=== PATIENT | female | born 1940 | race African-American/Black ===

== ENCOUNTER 2018-03-17 07:22 | Emergency (ER) | payer OTHER ==
[~2018-03-17] VITALS: Ht 170.2 cm; Wt 90.7 kg
[~2018-03-17 07:22] MED LIST: ADULT LOW DOSE81 MG PO; ARANESP10 MCG/0.4 IV; DIALYVITE TABL1 EACH PO; EPOGEN4000 UNIT/ SQ; HUMALOG100 UNIT/1 SQ; HYDROCODONE-APA1 TA1 PO; IBUPROFEN 800800 MG PO; LANTUS SC; LEVOTHYROXIN0.075 MG PO; LOVASTAT20 PO; MIDODRINE HCL10 MG PO; MIRALAX17 GM PO; NEPHRO-VITE TA0.8 MG PO; NORCO 5-325 TA1 EACH PO; PHOSLO667 MG PO; PREDNISONE 5 MG5 M1 PO; PRO-STAT RENAL30 ML PO; ROCALTROL0.5 MCG PO; SENSIPAR60 MG PO; SENSIPAR90 MG PO; TYLENOL325 MG PO
[2018-03-17] MEDS ORDERED: MUCINEX600 MG PO (07:39)
[2018-03-17] MEDS ORDERED: NORCO 5-325 TA1 EACH PO (08:17)
[2018-03-18] MEDS ORDERED: DURAGESIC1 EAC1 TRANSDERM (23:36)
[2018-03-19] MEDS ORDERED: TYLENOL EXTRA500 MG PO (02:09)
[2018-03-19] MEDS ORDERED: MUCINEX DM ER1 EAC1 PO (02:16)
[2018-03-19] MEDS ORDERED: SYNTHROID75 MCG PO (02:18)
[2018-03-19] MEDS ORDERED: HYDROCODONE-AP1 EAC6 PO (02:22)
[2018-03-19] MEDS ORDERED: ARANESP25 MCG/0.4 IV (02:26)
[2018-03-19] MEDS ORDERED: FERRLECIT62.5 MG/2 IV (02:27)
[2018-03-19] MEDS ORDERED: PROTONIX40 M1 PO (02:30)
== END 2018-03-17 09:05 | disposition home or self-care (01) ==
LOC: ER 07:22
DX: M16.11 Unilateral primary osteoarthritis, right hip (principal); N19 Unspecified kidney failure; Z99.2 Dependence on renal dialysis; E11.9 Type 2 diabetes mellitus without complications; Z95.811 Presence of heart assist device; Z88.8 Allergy status to other drugs, medicaments and biological substances

== ENCOUNTER 2018-04-15 09:15 | Emergency (ER) | payer OTHER ==
[~2018-04-15] VITALS: Ht 175.3 cm; Wt 90.7 kg
[~2018-04-15 09:15] MED LIST changes: +ARANESP25 MCG/0.4 IV; +DURAGESIC1 EAC1 TRANSDERM; +FERRLECIT62.5 MG/2 IV; +HYDROCODONE-AP1 EAC6 PO; +MUCINEX DM ER1 EAC1 PO; +MUCINEX600 MG PO; +PROTONIX40 M1 PO; +SYNTHROID75 MCG PO; +TYLENOL EXTRA500 MG PO
== END 2018-04-15 11:52 | disposition home or self-care (01) ==
LOC: ER 09:15
DX: M25.551 Pain in right hip (principal); M25.512 Pain in left shoulder; M25.561 Pain in right knee; E11.22 Type 2 diabetes mellitus with diabetic chronic kidney disease; N18.6 End stage renal disease; E78.5 Hyperlipidemia, unspecified; I25.10 Atherosclerotic heart disease of native coronary artery without angina pectoris; I25.2 Old myocardial infarction; M54.9 Dorsalgia, unspecified; G89.29 Other chronic pain; Z94.0 Kidney transplant status; Z88.8 Allergy status to other drugs, medicaments and biological substances; W18.39XA Other fall on same level, initial encounter; Y92.89 Other specified places as the place of occurrence of the external cause; Y93.89 Activity, other specified; Y99.8 Other external cause status

== ENCOUNTER 2018-04-24 16:01 | Inpatient (IN) | payer OTHER ==
[~2018-04-24] VITALS: Ht 175.3 cm; Wt 89.5 kg
--- NOTE | ~2018-04-24 | 2DMMODE ---
[facility] [address] [facility] [place] [address] 2 D/M-MODE ECHOCARDIOGRAM Name: NELA MILLAN Jovita Room #: 225-P [facility] IN .R.#: [id number] Admission: 04/24/18 Attend Phys: Curt Rinaldi, Discharge: Date of : 42 Date of Service: 04/25/18 1237 Report #: [id number] THIS REPORT FOR: //name// APPROVED REPORT Study performed: 04/25/2018 11:14:36 EXAM: Comprehensive 2D, Doppler, and color-flow Echocardiogram Patient Location: Bedside Room #: [facility] Status: routine BSA: 2.05 HR: 80 bpm BP: 123/56 mmHg Other Information Study Quality: Good Indications Diabetes CAD Hypertension/HDD 2D Dimensions RVDd: 31.58 mm LVEF(%): 58.32 (>50%) IVSd: 13.29 (7-11mm) LVOT Diam: 21.03 (18-24mm) LVDd: 43.77 mm PWd: 13.04 (7-11mm) Ascending Ao: 24.75 (22-36mm) LVDs: 30.38 (25-40mm) Aortic Root: 29.32 mm IVC: 10.00 mm Pulido's LVEF: 58.32 % Volumes Left Atrial Volume (Systole) Single Plane 4CH: 60.20 mL Single Plane 2CH: 46.90 mL LA ESV Index: 30.00 mL/m2 Aortic Valve AoV Peak Oliverio.: 1.29 m/s AO Peak Gr.: 6.68 mmHg LVOT Max P.04 mmHg LVOT Max V: 1.12 m/s LOUISE Vmax: 3.02 cm2 Mitral Valve E/A Ratio: 1.1 [facility] [place] [address] 2 D/M-MODE ECHOCARDIOGRAM Name: SHANNON MILLANDafne Hussein Room #: [address] [place] [address]..#: [id number] Admission: 04/24/18 Attend Phys: Curt Rinaldi, Discharge: Date of : 42 Date of Service: 04/25/18 1237 Report #: [id number] MV Decel. Time: 190.72 ms MV E Max Oliverio.: 0.78 m/s MV A Oliverio.: 0.71 m/s MV PHT: 55.31 ms IVRT: 96.89 ms Pulmonary Valve PV Peak Oliverio.: 1.07 m/s PV Peak Gr.: 4.59 mmHg Pulmonary Vein P Vein S: 0.50 m/s P Vein A: 0.26 m/s P Vein D: 0.22 m/s P Vein A Dur.: 124.6 msec P Vein S/D Ratio: 2.27 Left Ventricle The left ventricle is normal size. There is normal LV segmental wall motion. Mild concentric left ventricular hypertrophy. The left ventricular systolic function is normal. The left ventricular ejection fraction is within the normal range. LVEF is 55-60%. The diastolic function is abnormal. Right Ventricle The right ventricle is normal size. The right ventricular systolic function is normal. Atria The left atrium size is normal. The right atrium size is normal. Aortic Valve The aortic valve is normal in structure, trileaflet. No aortic regurgitation is present. There is no aortic valvular stenosis. Mitral Valve The mitral valve is normal in structure. There is no mitral valve regurgitation noted. No evidence of mitral valve stenosis. Tricuspid Valve The tricuspid valve is normal in structure. There is no tricuspid valve regurgitation noted. Pulmonic Valve The pulmonary valve is normal in structure. There is no pulmonic valvular regurgitation. [address] [address] 2 D/M-MODE ECHOCARDIOGRAM Name: NELA MILLAN Room #: 225-P [facility]#: [id number] Admission: 04/24/18 Attend Phys: Curt Rinaldi, Discharge: Date of : 42 Date of Service: 04/25/18 1237 Report #: [id number] Great Vessels The aortic root is normal in size. IVC is normal in size and collapses >50% with inspiration. Pericardium There is no pericardial effusion. <Conclusion> The left ventricular systolic function is normal. There is normal LV segmental wall motion. The aortic valve is normal in structure, trileaflet. No aortic regurgitation or stenosis The mitral valve is normal in structure. No mitral valve regurgitation. Pulmonary artery pressure could not be reliably ascertained There is no pericardial effusion. <ELECTRONICALLY SIGNED> By: Milad Cr MD, FACC 04/25/18 1237 1237 1237 Milad Cr MD, FACC /INF
--- NOTE | ~2018-04-24 | HC ---
[facility] [place] [address] CONSULTATION Name: NELA MILLAN Room #: 225-P ADM IN M.R.#: [id number] Admission: 04/24/18 Attend Phys: Curt Rinaldi MD Discharge: Date of : 42 Report #: [id number] THIS REPORT FOR: //name// CC: Curt Rinaldi DATE OF SERVICE: 04/25/2018 ATTENDING PHYSICIAN: Curt Rinaldi MD REASON FOR CONSULTATION: End-stage renal disease. HISTORY OF PRESENT ILLNESS: The patient is well known to our service, longstanding diabetes, end-stage renal disease, on dialysis overall, more or less for the last 13 years, she briefly had a renal transplant 10-11 years ago, which did not do well and eventually had explanted. More recently, she has had trouble with pain in her right hip, which has worsened. She has had difficulty getting around with weakness and poor appetite. Evaluation showed very severe arthritis in the right hip, the patient was offered a hip replacement, but refused, was at rehab, had not much in the way of improvement and now is readmitted for further evaluation and treatment. PAST MEDICAL HISTORY: Longstanding diabetes mellitus, end-stage renal disease, peripheral neuropathy, previous pituitary tumor, which required surgery, some degree of pituitary insufficiency, on thyroid and adrenal replacement. She also has a history of coronary artery disease, status post PCI with 2 coronary artery stents. CURRENT MEDICATIONS: Include lovastatin 20 mg daily, aspirin 81 mg daily, PhosLo 3 with meals t.i.d., calcitriol 1.5 mcg twice a week, Nephro-Remy 1 daily, Synthroid 75 mcg daily, hydrocodone p.r.n., Aranesp 50 mcg weekly, pantoprazole 40 mg daily, Sensipar 60 mg daily, prednisone 7.5 mg daily. PAST SURGICAL HISTORY: Includes previous , right arm AV fistula, previous kidney transplant and removal, and hypophysectomy as mentioned above. FAMILY HISTORY: Negative for renal disease. SOCIAL HISTORY: No cigarettes or alcohol. Lives at home with her and a daughter. REVIEW OF SYSTEMS: GENERAL: She has been feeling poorly. EYES: Vision has been okay. ENT: Hearing okay, swallows okay. Denies mouth ulcers. ENDOCRINE: Positive for the pituitary insufficiency and diabetes. [address] [address] CONSULTATION Name: NELA MILLAN Room #: 225-P [facility] IN M.R.#: [id number] Admission: 04/24/18 Attend Phys: Curt Rinaldi MD Discharge: Date of : 42 Report #: [id number] RESPIRATORY: Denies shortness of breath or pleuritic pain. CARDIAC: Denies chest pain, angina, swelling, or palpitations. GASTROINTESTINAL: Appetite has been poor. She has had some diarrhea of late. GENITOURINARY: Not making much urine at all. NEUROLOGIC: Generalized weakness as mentioned. MUSCULOSKELETAL: Lots of pain in the right hip. SKIN: No skin rashes, lesions, or ulcers. PHYSICAL EXAMINATION: GENERAL: This is a somewhat depressed, chronically ill appearing patient. SKIN: Unremarkable. SKELETAL: Lot of pain with movement of the right hip. HEENT: Extraocular movements are full. Vision intact. No scleral icterus. Hearing intact. Mucous membranes are moist. Tongue, buccal mucosa benign. NECK: Supple, no carotid bruits. CHEST: Clear to auscultation. HEART: Regular, occasional premature beats. ABDOMEN: Soft and nontender without bruits, masses or organomegaly. The right upper arm fistula is intact. EXTREMITIES: Show no peripheral edema. Pulses diminished. LABORATORY DATA: Sodium 140, potassium 4.5, chloride 101, bicarbonate 25, creatinine 4.9. ASSESSMENT: 1. End-stage renal disease. Continue on 3 times weekly dialysis. 2. Severe right hip pain. She might reconsider surgery and see if a hip replacement might help the pain and enable her to get back up and around. She certainly needs lots of rehab. 3. Status post pituitary tumor with removal, on adrenal and thyroid replacements. 4. Diabetes mellitus with peripheral neuropathy. 5. History of coronary artery disease, status post stents. We will order an echocardiogram. <ELECTRONICALLY SIGNED> By: Mahin Jain MD 04/26/18 1022 0935 1241 Mahin Jain MD /nt
--- NOTE | ~2018-04-24 | HC ---
[facility] [place] [address] CONSULTATION Name: NELA MILLAN Room #: 225-P [facility] IN M.R.#: [id number] Admission: 04/24/18 Attend Phys: Curt Rinaldi MD Discharge: Date of : 41 Report #: [id number] THIS REPORT FOR: //name// CC: Curt Rinaldi DATE OF SERVICE: 04/28/2018 ORTHOPEDIC CONSULTATION CHIEF COMPLAINT: Right hip pain. HISTORY OF PRESENT ILLNESS: The patient is a very pleasant 77-year-old female seen today for evaluation of her right hip. The patient had been seen at the end of February for right hip pain and osteoarthritis. She has a history of end-stage renal disease and is currently on dialysis. She had Interventional Radiology perform a cortisone injection into her hip, which she reports provided minimal relief. She reports today she is feeling a little better. The pain medicines that she has had while in the hospital have allowed her to feel better. She is here with her daughter today, receiving dialysis currently and is interested in discussing her options further. No further injuries have been noted. She denies any falls, trauma or injuries. She reports ambulating primarily with a walker or using a wheelchair for longer distances. PAST MEDICAL HISTORY: Significant for end-stage renal disease, prior kidney transplant and removal, long-standing diabetes, peripheral neuropathy, pituitary tumor, pituitary insufficiency, on thyroid and adrenal replacement and history of coronary artery disease with 2 coronary artery stents. PAST SURGICAL HISTORY: Also includes previous , right arm AV fistula and hypophysectomy. CURRENT MEDICATIONS: Please see current MAR. The patient is on prednisone 7.5 mg a day. FAMILY HISTORY: Negative for renal disease. SOCIAL HISTORY: The patient lives at home with her and a daughter. Denies alcohol or tobacco use. PHYSICAL EXAMINATION: VITAL SIGNS: Most recent vitals, temperature 98.6, pulse 74, respirations 14, BP 149/71 and pulse ox 98%. Height 5 feet 9 inches, weight 200 pounds. GENERAL: The patient is alert and oriented x 3, cooperative. Answers questions appropriately. Daughter is at bedside. MUSCULOSKELETAL EXAMINATION: Reveals pelvis is stable to AP and lateral compression. She is tender over the right hip and right paraspinal muscles[place] [address] CONSULTATION Name: NELA MILLAN Room #: [address] [place] [address] [place] .R.#: [id number] Admission: 04/24/18 Attend Phys: Curt Rinaldi MD Discharge: Date of : 41 Report #: [id number] compared to the left. She again continues to have difficulty getting out of bed and transferring. She denies pain over the sacroiliac joints or piriformis fossa. The majority of her pain is localized in the right inguinal region. She denies pain in the left inguinal region. Hip motion is unchanged with flexion, limited to approximately 90 degrees and she has increased pain with flexion and internal rotation. She has minimal discomfort over the more distal thigh, knee, leg and ankle. She reports a peripheral neuropathy with some sensation intact distally. Compartments are soft. Mild swelling is noted in the lower extremities. LABORATORY DATA: Reviewed. Prior radiographs revealed a right hip arthrosis. IMPRESSION: 1. Right hip osteoarthritis. 2. Multiple medical comorbidities. PLAN: We again reviewed treatment options with the patient and her daughter for her right hip osteoarthritis. She reports that she is currently scheduled to be discharged later today to [facility]. We have discussed continued nonoperative management and utilization of oral pain medications versus total hip arthroplasty. We have discussed some of the potential risks, benefits, alternatives and potential complications. I have discussed with her that I do not perform total hip arthroplasty, but one of my partners could be seen, either Dr. Bertin Martinez or Dr. Tanmay Wayne. The patient and her daughter feel comfortable with being discharged today and seeing one of my partners on an outpatient basis to discuss potential hip replacement further. She, at this point, is unsure if she would like to commit to this type of procedure. Thank you for this consultation. By: 1107 1220 Edson Yoo MD /john
--- NOTE | ~2018-04-24 | EKG ---
[facility] [place] [address] [place] [address] ELECTROCARDIOGRAM REPORT Name: NELA MILLAN Room #: 419-P [facility] IN ..#: [id number] Admission: 04/24/18 Attend Phys: Curt Rinaldi MD Discharge: Date of : 41 Report #: [id number] THIS REPORT FOR: //name// [facility] ED Test Date: 2018-04-24 Test Time: 16:44:52 Pat Name: NELA MILLAN Department: Room: Gender: F Manager Terminal: jlnaty : 1940 Requested By: Simón Gaines Order Number: [id number] MD: Milad rC Measurements Intervals [place]dermott Rate: 93 P: 69 CT: 163 QRS: -12 QRSD: 79 T: QT: 372 QTc: 463 Interpretive Statements Sinus tachycardia Multiple premature complexes, vent & supraven Borderline low voltage, extremity leads Nonspecific T abnormalities, lateral leads Compared to ECG 12/20/2014 06:43:05 T-wave abnormality now present ventricular and supraventricular ectopy now present Electronically Signed On 04-25-2018 7:35:08 CDT by Milad Cr [email or web address] <ELECTRONICALLY SIGNED> By: Milad Cr MD, [facility] 04/25/18 0735 1644 1644 Milad Cr MD, [facility] /EPI
[2018-04-24 16:06] VITALS: BP 154/70
[2018-04-24 17:52] LABS: ABSOLUTE NEUTROPHILS 6.4 thou/uL (1.4-8.2); BASOPHILS 1.2 % (0.0-2.0); EOSINOPHILS 0.6 % (0.0-3.0); HEMATOCRIT 43.8 % (37.0-47.0); HEMOGLOBIN 13.8 gm/dL (12.0-15.0); LYMPHOCYTES 6.1 % (24.0-44.0); MCH 30.9 pg (26.0-34.0); MCHC 31.4 g/dL (28.0-37.0); MCV 98.3 fL (80.0-100.0); MONOCYTES 7.7 % (1.0-8.0); PLATELET COUNT 141 thou/uL (150-400); POLYS 84.4 % (36.0-66.0); RBC 4.46 mil/uL (4.20-5.00); RDW 22.7 % (10.5-14.5); WBC 7.5 thou/uL (4.0-11.0)
[2018-04-24 17:54] VITALS: BP 154/70
[2018-04-24 18:10] LABS: ANION GAP 14 mmol/L (7-16); CHLORIDE 101 mmol/L (98-107); CO2 25 mmol/L (21-32); POTASSIUM 4.5 mmol/L (3.5-5.1); SODIUM 140 mmol/L (136-145); TROPONIN-I < 0.04 ng/mL (<0.06)
[2018-04-24 18:16] LABS: BUN 8 mg/dL (7-18); CALCIUM 8.5 mg/dL (8.5-10.1); CREATININE 4.9 mg/dL (0.6-1.0); GLUCOSE 72 mg/dL (74-106)
[2018-04-24 18:25] VITALS: BP 161/65
[2018-04-24 20:00] VITALS: BP 161/65
[2018-04-25 04:07] VITALS: BP 136/61
[2018-04-25 07:10] VITALS: BP 123/56
[2018-04-25 21:20] VITALS: BP 140/92
[2018-04-26 08:02] LABS: ALBUMIN 2.4 g/dL (3.4-5.0); CALCIUM 7.8 mg/dL (8.5-10.1); PHOSPHORUS 2.6 mg/dL (2.5-4.9); POTASSIUM 4.6 mmol/L (3.5-5.1)
[2018-04-26 08:07] LABS: CREATININE 7.6 mg/dL (0.6-1.0)
[2018-04-26 20:07] VITALS: BP 106/56
[2018-04-26 20:20] VITALS: BP 133/64
[2018-04-27 08:14] VITALS: BP 136/67
[2018-04-27 20:01] VITALS: BP 140/79
[2018-04-28 08:40] VITALS: BP 149/71
== END 2018-04-28 18:31 | DRG 682 ==
LOC: ER 16:01 → EROBS 17:13 → 4E 17:13 → SICU 04-25 10:49
PROVIDERS: Internal Medicine Nephrology; Physician Assistant
PROC: 5A1D70Z Performance of Urinary Filtration, Intermittent, Less than 6 Hours Per Day (ICD-10-PCS; principal; 2018-04-25)
PROC: 5A1D70Z Performance of Urinary Filtration, Intermittent, Less than 6 Hours Per Day (ICD-10-PCS; 2018-04-27)
DX: N17.9 Acute kidney failure, unspecified (principal); E43 Unspecified severe protein-calorie malnutrition; I12.0 Hypertensive chronic kidney disease with stage 5 chronic kidney disease or end stage renal disease; Z94.0 Kidney transplant status; N18.6 End stage renal disease; R29.6 Repeated falls; E78.5 Hyperlipidemia, unspecified; I25.10 Atherosclerotic heart disease of native coronary artery without angina pectoris; Z95.5 Presence of coronary angioplasty implant and graft; I25.2 Old myocardial infarction; G89.29 Other chronic pain; M54.9 Dorsalgia, unspecified; E11.22 Type 2 diabetes mellitus with diabetic chronic kidney disease; E11.42 Type 2 diabetes mellitus with diabetic polyneuropathy; M16.11 Unilateral primary osteoarthritis, right hip; Z79.82 Long term (current) use of aspirin; Z88.8 Allergy status to other drugs, medicaments and biological substances; Z79.899 Other long term (current) drug therapy; Z99.2 Dependence on renal dialysis
CPT/HCPCS: 10084; 15002; 32100

== ENCOUNTER 2018-05-23 17:00 | Emergency (ER) | payer OTHER ==
[~2018-05-23] VITALS: Ht 170.2 cm; Wt 83.0 kg
== END 2018-05-23 19:10 | disposition home or self-care (01) ==
LOC: ER 17:00
DX: S81.812A Laceration without foreign body, left lower leg, initial encounter (principal); N18.6 End stage renal disease; M54.9 Dorsalgia, unspecified; G89.29 Other chronic pain; E78.5 Hyperlipidemia, unspecified; E11.9 Type 2 diabetes mellitus without complications; I25.10 Atherosclerotic heart disease of native coronary artery without angina pectoris; I25.2 Old myocardial infarction; Z90.5 Acquired absence of kidney; Z99.2 Dependence on renal dialysis; Z88.8 Allergy status to other drugs, medicaments and biological substances; W01.0XXA Fall on same level from slipping, tripping and stumbling without subsequent striking against object, initial encounter; Y92.89 Other specified places as the place of occurrence of the external cause; Y93.89 Activity, other specified; Y99.8 Other external cause status

== ENCOUNTER → 2018-06-04 | Outpatient (CLI) | payer OTHER | LOC: RAD 10:04 | DX: M16.11 Unilateral primary osteoarthritis, right hip (principal); M47.816 Spondylosis without myelopathy or radiculopathy, lumbar region; W19.XXXA Unspecified fall, initial encounter ==

== ENCOUNTER 2018-06-05 11:36 | Emergency (ER) | payer OTHER ==
[~2018-06-05] VITALS: Ht 170.2 cm; Wt 83.0 kg
== END 2018-06-05 14:18 | disposition home or self-care (01) ==
LOC: ER 11:36
DX: M25.551 Pain in right hip (principal); G89.29 Other chronic pain; I12.0 Hypertensive chronic kidney disease with stage 5 chronic kidney disease or end stage renal disease; E11.22 Type 2 diabetes mellitus with diabetic chronic kidney disease; N18.6 End stage renal disease; I25.10 Atherosclerotic heart disease of native coronary artery without angina pectoris; E78.5 Hyperlipidemia, unspecified; M54.9 Dorsalgia, unspecified; Z88.8 Allergy status to other drugs, medicaments and biological substances; Z99.2 Dependence on renal dialysis; Z94.0 Kidney transplant status

== ENCOUNTER 2018-08-16 12:27 | Inpatient (IN) | payer OTHER ==
[~2018-08-16] VITALS: Ht 170.2 cm; Wt 85.7 kg
--- NOTE | ~2018-08-16 | H ---
[facility] [place] [address] HISTORY AND PHYSICAL Name: NELA MILLAN Room #: 516-1 ADM IN M.R.#: [id number] Admission: 08/16/18 Attend Phys: Bertin Shepard MD Discharge: Date of : 41 Report #: [id number] THIS REPORT FOR: //name// CC: Bertin Rinaldi DATE OF SERVICE: 08/16/2018 HISTORY OF PRESENT ILLNESS: The patient is a 78-year-old -[place] female with recent right total hip arthroplasty, was undergoing dialysis when she developed acute mental status changes. She was transferred to [facility] for further evaluation. This was felt to be an acute encephalopathy secondary to anoxic/hypotension from hemodialysis. The acute mental status has since resolved; however, she has continued to remain weak. She has significant right hip pain, thigh pain. Hip to knee with weakness and ambulation in the right lower extremity. She is noted to have a lumbar radiculopathy with right lower extremity weakness and has severe degenerative arthritic changes of her lower back with recent imaging. She was noted to have severe L5-S1 degenerative disk disease with disk bulge asymmetric to the right and [id number] right and left neural foraminal stenosis at L5-S1. The patient is noted to have significant functional mobility and ADL deficits and has now been admitted for acute in-hospital inpatient rehabilitation. PAST MEDICAL HISTORY: End-stage renal failure, history of dialysis Monday, Monday, and Monday. She has had a prior kidney transplant with rejection, adrenal insufficiency, pituitary tumor status post removal, hyperlipidemia, non-insulin dependent diabetes mellitus, coronary artery disease, [place] with stenting, chronic back pain, prior right total hip replacement as noted above. HABITS: No history of tobacco or alcohol abuse. SOCIAL HISTORY: Previously prior to the hip surgery. Have been in a house living with spouse, 2 daughters, 3 grandchildren, duplex single level, four entry stairs from the front and three from the back. REVIEW OF SYSTEMS: Did not offer any current complaints of chest pain, shortness of breath or abdominal discomfort. She has the discomfort of the right lower extremity. PHYSICAL EXAMINATION: GENERAL: A 78-year-old -[place] female, in no obvious distress, somewhat overweight. VITAL SIGNS: Last recorded temperature 98.4, pulse 75, respirations 18, and blood pressure 126/52. The patient is alert. HEENT: Appeared to be benign. NEUROLOGIC: Cranial nerves are grossly intact. Facies are symmetric. She [facility] [address] [place] [address] HISTORY AND PHYSICAL Name: NELA MILLAN Room #: [facility] IN [facility]#: [id number] Admission: 08/16/18 Attend Phys: Bertin Shepard MD Discharge: Date of : 41 Report #: [id number] follows basic commands without difficulty. CHEST: Sounded clear to auscultation. CARDIOVASCULAR: Regular rate and rhythm. ABDOMEN: Bowel sounds positive, nontender. GENITOURINARY AND RECTAL: Deferred. EXTREMITIES: Right hip, old dressings are in place. No drainage is noted. Appeared dry. No focal calf swelling. Right lower extremity appeared weaker than left lower extremity, able to lift antigravity, right leg, but unable to maintain position due to the pain and weakness. DTRs were trace to 1. Needing assistance with basic functional mobility skills. Sit to stand has been min assist, gait 12 feet min assist with a front-wheeled walker. ASSESSMENT: 1. Lumbar radiculopathy with right lower extremity weakness. 2. Right disk bulge, L5-S1 with neural foraminal stenosis. 3. Gait instability. 4. Acute encephalopathy, resolved. 5. End-stage renal disease, on hemodialysis. 6. Severe degenerative arthritis, status post right total hip arthroplasty on 07/09/2018. 7. Hyperlipidemia. 8. Hypertension. 9. Diabetes mellitus type 2. 10. History of myocardial infarction, status post stenting. PLAN: From a postadmission physician evaluation perspective, there are no relevant changes since the preadmission screening. Please see the above review of prior and current medical and functional conditions and comorbidities. Please see the patient's previous and current functional status. As far as risk of complications, the patient has multiple medical comorbidities as noted above. Initial plan of care involves the interdisciplinary acute inpatient rehabilitation program with the goal of maximizing the patient's functional independence, so she can hopefully return back to her prior living situation. Measurable functional goals would be for her to become modified independent with transfers, mobility, ADLs, improved strength and endurance so she can return back to the home setting. Prognosis is reasonably good with estimated length of stay probably 10 days to 2 weeks, potentially longer as warranted. Potential barriers would include her multiple medical comorbidities and decreased functional status. The patient meets diagnostic criteria for an acute in-hospital inpatient rehabilitation stay. She meets the medical necessity criteria with the above noted multiple comorbidities and her current rehabilitation needs and and we will have the technical assistance consultant physicians continue to follow while she is on the [address] [address] HISTORY AND PHYSICAL Name: NELA MILLAN Room #: 516-1 ADM IN M.R.#: [id number] Admission: 08/16/18 Attend Phys: Bertin Shepard MD Discharge: Date of : 41 Report #: [id number] acute rehab little. She does have the tolerance for therapies and has appropriate discharge goals back to the home setting. <ELECTRONICALLY SIGNED> By: Bertin Shepard MD 08/28/18 0959 0726 0948 Bertin Shepard MD /nt
--- NOTE | ~2018-08-16 | HC ---
[facility] [place] [address] CONSULTATION Name: NELA MILLAN Room #: 510-P [facility] IN M.R.#: [id number] Admission: 08/16/18 Attend Phys: Bertin Shepard MD Discharge: Date of : 41 Report #: [id number] THIS REPORT FOR: //name// CC: Bertin Rinaldi DATE OF SERVICE: 08/18/2018 CHIEF COMPLAINT: Right hip pain. HISTORY OF PRESENT ILLNESS: This very frail 78-year-old female with severe chronic degenerative osteoarthritis and chronic renal failure, on chronic dialysis, underwent right hip replacement about 1 month ago. She was quite uncomfortable prior to that surgery with symptoms, which seem consistent with severe end-stage degenerative osteoarthritis of the hip, as well as moderately severe degenerative lumbar spondylosis, probably including some spinal stenosis. She did very well following that surgery and had marked improvement in her symptoms suggesting that the hip was the primary pain generator. She has been able to advance activity and resume ambulation with assistance. She then developed a new episode of hypotension and mental obtundation during dialysis. She was readmitted for this metabolic issue. She then was doing therapy and trying to go up and down a few steps and then experienced increased right hip discomfort. Now, her pain is in the buttock and lateral hip region, but extends down to the knee. Symptoms are moderately aggravated by activity. She notes that hydrocodone is helpful in controlling her symptoms. At the time of my evaluation, she is in dialysis and so not able to be up and mobile. The right hip seems to be in good position and demonstrates good range of motion. There is no crepitus. There is no bruising or swelling. There is no sign of instability or deformity. She does, however, note some hip, thigh, and groin discomfort, but also some vague discomfort extending down toward the knee, which could be more radicular pains and hip pain. X-rays of the right hip reveal no clear obvious significant changes or fractures; however, the radiologist has noted a subtle lucency in the greater trochanter, which could be a minor nondisplaced crack. I am questioning that diagnosis. In reviewing the films myself, there is certainly no evidence of a sizable or significant fracture. The total hip prosthesis seems to be in good position without any evidence of loosening or erosion nor infection. A new CT scan of the lumbar spine was also obtained, which reveals rather severe multilevel degenerative spondylosis, which combines to result in moderate spinal stenosis with canal measuring about 7 mm at the L2-L3 and L3-L4 levels. In summary, I think her symptoms are the result of combination of problems including lumbar spinal stenosis and also her recent total hip surgery; however, at this point, I see nothing which would suggest a significant change in the [facility] [address] [place] [address] CONSULTATION Name: NELA MILLAN Room #: 510-P [facility] IN M.R.#: [id number] Admission: 08/16/18 Attend Phys: Bertin Shepard MD Discharge: Date of : 41 Report #: [id number] total hip components nor the proximal femur bony architecture. I see no evidence of a sizeable fracture, which would require limitation of her activity or therapy. Therefore, I feel she may continue with her current therapy program with appropriate protections based upon her level of comfort and strength. We will follow along and see whether symptoms seem to be more consistent with mechanical hip and thigh pain or more consistent with lumbar spinal stenosis and radiculopathy. In either case, I would expect conservative management at this point would be most appropriate. Thank you for allowing me to participate in her care. <ELECTRONICALLY SIGNED> By: Bertin Martinez MD 08/21/18 1241 1510 0224 Bertin Martinez MD /nt
--- NOTE | ~2018-08-16 | PLAN ---
[facility] [place] [address] [place] [address] REHAB UNIT PLAN OF CARE Name: NELA MILLAN Room #: 516-1 ADM IN M.R.#: [id number] Admission: 08/16/18 Attend Phys: Bertin Sehpard MD Discharge: Date of : 42 Report #: [id number] THIS REPORT FOR: //name// CC: Bertin Rinaldi DATE OF SERVICE: 08/18/2018 OVERALL PLAN OF CARE The overall plan of care is based on the preadmission screen, post-admission physician evaluation, and information garnered from therapy assessments. The patient had been max assist with basic transfers and is ambulating 25 feet with mod assist with a front-wheeled walker. She was working in occupational therapy and total hip precautions were being utilized. Nursing notes indicate that when the patient stepped down, she felt severe pain and being weak since then. The hospitalist service has been notified and a hip x-ray is currently pending. 1. Estimated length of stay is uncertain at this point. It will depend in part upon what the hip x-ray shows. Up until this point, I would say a length of stay of approximately 10 days to 2 weeks and potentially longer as warranted. 2. Medical prognosis is reasonably good. 3. Anticipated interventions include the interdisciplinary acute inpatient rehabilitation program. 4. Anticipated functional outcomes would be for the patient to become modified independent with transfers, mobility, and ADLs. 5. Discharge destination is back to the home setting. She has been in a house living with her spouse, 2 daughters and 3 grandchildren, duplex single level. 6. Expected therapy by discipline has been PT/OT 1-1/2 hours per day each 5 days a week throughout the duration of the acute inpatient rehabilitation stay. <ELECTRONICALLY SIGNED> By: Bertin Shepard MD 08/28/18 1001 [id number] Bertin Shepard MD /nt
--- NOTE | ~2018-08-16 | HC ---
[facility] [address] [place] [address] CONSULTATION Name: NELA MILLAN Room #: 510-P ADM IN M.R.#: [id number] Admission: 08/16/18 Attend Phys: Bertin Shepard MD Discharge: Date of : 42 Report #: [id number] THIS REPORT FOR: //name// CC: Bertin Rinaldi DATE OF SERVICE: 08/19/2018 TYPE OF REPORT: Neurobehavioral status exam. AGE: 78. ATTENDING PHYSICIAN: Bertin Shepard M.D. INSERTER: Curt Woodard, Ph.D. CLINICAL PRESENTATION: The patient is a 78-year-old female admitted to the Rehabilitation Unit at [facility] for a comprehensive inpatient rehabilitation program to improve functional mobility, activities of daily living and self-care and mental status secondary to deficits from a lumbar radiculopathy with right lower extremity weakness. The patient reports having been at [facility] and finishing dialysis when she developed acute mental status changes. She then contacted her daughter who then accompanied her to the hospital after requiring additional assistance at the long-term care facility. The patient is described as having a period of confusion and disorientation that occluded an inability to speak. She eventually had a gradual return of function to allow for communication. A comprehension is described as having been consistent and within normal limits throughout this stage of recovery. She is currently a fluent and is not presenting with verbal fluency deficits to the extent of her initial hospitalization. Additional assessment on the rehabilitation unit includes right disk bulge, L5-S1 with neural foraminal stenosis; gait instability; acute encephalopathy that has resolved; end-stage renal disease, on hemodialysis; severe degenerative arthritis, status post total hip arthroplasty; hyperlipidemia; hypertension; diabetes mellitus type 2 and a history of myocardial infarction, status post stenting. A complete description of her medical condition and history along with medications can be found in her medical record. Neuropsychological consultation was requested to provide assistance in the assessment of cognitive and emotional status and to provide recommendations and services. Prior to this most recent medical event, she was living at the [facility]. She had been at the [facility] since February of 2018. She had difficulty with walking and the ability to maintain activities of daily living to the extent that 24-hour assistance was necessary. She has 3 children. She is . She is a high school graduate plus 2 years of college. She had worked for the [address] [address] CONSULTATION Name: NELA MILLAN Room #: 510-P [facility] IN ..#: [id number] Admission: 08/16/18 Attend Phys: Bertin Shepard MD Discharge: Date of : 42 Report #: [id number] prior to fpc. TECHNIQUES UTILIZED: Clinical interview, review of medical records, staff consultation and behavioral observation, mini mental status exam 2 standard version and clock drawing and family interview - daughter. EXAMINATION FINDINGS: The patient was alert and cooperative with the assessment. She accurately described events surrounding her admission. There is no evidence of aphasia. Her thoughts are logical and goal oriented. There is no evidence of thought disorder. She does not report auditory or visual hallucinations. The patient does indicate concern about the extent of the encephalopathy of periods of amnesia surrounding her hospitalization. However, cognition is described as having returned to within normal limits. The patient described having reported having had a microadenoma removed in 2014. She discontinued driving about 10 years ago. She describes her symptoms to include variability in memory, subjective anxiety and inconsistent word finding. She does not report difficulty with sleep or appetite. Increased anxiety is suggested by her daughter. However, there does not report of symptoms of depression. Her performance on the MMSE 2 brief version is within normal limits with a raw score of 14 of 16. She was 4 of 5 for orientation to time. She was one day off day. She was 2 of 3 for immediate recall of 3 items after a brief time delay and distraction. MMSE 2 standard version is within normal limits with a raw score 26 of 30. She was 3 of 5 for serial sevens, 2 of 2 for naming, 1 of 1 for repetition, 3 of 3 for auditory comprehension. She could read and follow single command and write a sentence. The patient was able to draw a clock and set the hands at a designated time. Variability in the upper extremity dexterity is suggested by handwriting in her description of her daughter. DIAGNOSTIC IMPRESSION: Unspecified anxiety disorder (related to medical condition and concerns about recovery) and mild neurocognitive disorder, unspecified, without behavior disturbance. RECOMMENDATIONS: The patient is likely be showing subtle variability in cognitive function. Sustain concentration/attention and immediate recall may be variable. It was the delirium for which the patient was admitted, is likely to have resolved at this time. Followup neuropsych assessment, however, may be of benefit to clarify the severity of cognitive disorder and to provide services to assist with overall adjustment and compensation strategies. Increased monitoring for medication and nutrition should be instituted just to assist initially with the determination of her ability to maintain independence with medication, finances and nutrition. [facility] [address] [place] [address] CONSULTATION Name: NELA MILLAN Room #: 510-P ADM IN .R.#: [id number] Admission: 08/16/18 Attend Phys: Bertin Shepard MD Discharge: Date of : 42 Report #: [id number] Thank you very much for allowing me to provide the consultation on this patient. By: [phone] Curt Woodard, PhD /nt
[~2018-08-16 12:27] MED LIST changes: +DIALYVITE PO; +ENOXAPARIN30 MG/0.1 SUBQ; +VOLTAREN GEL 1100 G2 TOP
[2018-08-16 14:39] VITALS: BP 110/52
[2018-08-16 19:40] VITALS: BP 126/52
[2018-08-17 06:26] LABS: HEMATOCRIT 32.8 % (37.0-47.0); HEMOGLOBIN 10.5 gm/dL (12.0-15.0); MCH 31.7 pg (26.0-34.0); MCV 99.1 fL (80.0-100.0); RBC 3.31 mil/uL (4.20-5.00); WBC 10.6 thou/uL (4.0-11.0)
[2018-08-17 06:40] LABS: CALCIUM 8.8 mg/dL (8.5-10.1); CREATININE 6.5 mg/dL (0.6-1.0); POTASSIUM 4.8 mmol/L (3.5-5.1)
[2018-08-17 10:02] VITALS: BP 116/62
[2018-08-17 19:20] VITALS: BP 117/60
[2018-08-18 01:10] LABS: GLYCOHEMOGLOBIN (HGB A1C) 4.3 % (4.8-5.6)
[2018-08-18 08:30] VITALS: BP 143/63
[2018-08-18 19:40] VITALS: BP 110/50
[2018-08-19 07:40] VITALS: BP 127/57
[2018-08-19 20:00] VITALS: BP 127/55
[2018-08-20 08:00] VITALS: BP 147/63
[2018-08-20 16:10] LABS: HEPATITIS B SURFACE AG Negative (Negative)
[2018-08-20 19:20] VITALS: BP 127/56
[2018-08-21 04:23] LABS: ALBUMIN 2.8 g/dL (3.4-5.0); CALCIUM 8.3 mg/dL (8.5-10.1); CREATININE 8.4 mg/dL (0.6-1.0); PHOSPHORUS 4.9 mg/dL (2.5-4.9)
[2018-08-21 04:27] LABS: POTASSIUM 6.6 mmol/L (3.5-5.1)
[2018-08-21 07:20] VITALS: BP 146/65
[2018-08-21 19:17] VITALS: BP 136/57
[2018-08-22 07:15] VITALS: BP 145/73
[2018-08-22 19:36] VITALS: BP 133/50
[2018-08-23 06:35] LABS: ALBUMIN 2.9 g/dL (3.4-5.0); CALCIUM 8.3 mg/dL (8.5-10.1); PHOSPHORUS 4.2 mg/dL (2.5-4.9); POTASSIUM 4.9 mmol/L (3.5-5.1)
[2018-08-23 06:37] LABS: CREATININE 7.2 mg/dL (0.6-1.0)
[2018-08-23 07:29] VITALS: BP 150/78
[2018-08-23 20:50] VITALS: BP 127/57
[2018-08-24 07:36] VITALS: BP 138/70
[2018-08-24 20:20] VITALS: BP 124/65
[2018-08-25 07:42] VITALS: BP 146/68
[2018-08-25 19:55] VITALS: BP 135/51
[2018-08-26 07:50] VITALS: BP 140/60
[2018-08-26 19:45] VITALS: BP 129/53
[2018-08-27 08:00] VITALS: BP 163/79
[2018-08-27 09:10] VITALS: BP 145/56
[2018-08-27 20:47] VITALS: BP 127/58
[2018-08-28 03:43] LABS: HEMATOCRIT 27.9 % (37.0-47.0); HEMOGLOBIN 9.2 gm/dL (12.0-15.0); MCH 32.4 pg (26.0-34.0); MCHC 32.9 g/dL (28.0-37.0); MCV 98.6 fL (80.0-100.0); RBC 2.83 mil/uL (4.20-5.00); WBC 12.7 thou/uL (4.0-11.0)
[2018-08-28 04:09] LABS: ALBUMIN 2.8 g/dL (3.4-5.0); CREATININE 7.4 mg/dL (0.6-1.0); PHOSPHORUS 3.9 mg/dL (2.5-4.9); POTASSIUM 5.1 mmol/L (3.5-5.1)
[2018-08-28 08:17] VITALS: BP 148/67
[2018-08-28 19:10] VITALS: BP 123/51
[2018-08-29 08:00] VITALS: BP 155/70
[2018-08-29 20:05] VITALS: BP 154/67
[2018-08-30 06:47] LABS: ALBUMIN 2.7 g/dL (3.4-5.0); CALCIUM 7.8 mg/dL (8.5-10.1); PHOSPHORUS 3.7 mg/dL (2.5-4.9); POTASSIUM 4.6 mmol/L (3.5-5.1)
[2018-08-30 06:48] LABS: CREATININE 6.3 mg/dL (0.6-1.0)
[2018-08-30 08:17] VITALS: BP 153/69
[2018-08-30 20:30] VITALS: BP 124/52
[2018-08-31 07:54] VITALS: BP 155/77
[2018-08-31 19:05] VITALS: BP 131/52
[2018-09-01 08:20] VITALS: BP 143/68
[2018-09-01 20:20] VITALS: BP 130/50
[2018-09-02 09:50] VITALS: BP 134/56
[2018-09-02 20:47] VITALS: BP 140/44
[2018-09-03 07:55] VITALS: BP 144/59
[2018-09-03 09:39] VITALS: BP 144/59
== END 2018-09-03 15:30 | disposition home health service (06) | DRG 551 ==
LOC: ENTRNSPT 08-23 12:44 → EDTRNSPTSTS 08-23 12:50 → ENTRNSPT 09-03 15:31 → EDTRNSPTSTS 09-03 15:33
PROVIDERS: Hospitalist; Internal Medicine Nephrology; Nurse Practitioner Family
PROC: 5A1D70Z Performance of Urinary Filtration, Intermittent, Less than 6 Hours Per Day (ICD-10-PCS; principal; 2018-08-18)
PROC: 5A1D70Z Performance of Urinary Filtration, Intermittent, Less than 6 Hours Per Day (ICD-10-PCS; 2018-08-21)
PROC: 5A1D70Z Performance of Urinary Filtration, Intermittent, Less than 6 Hours Per Day (ICD-10-PCS; 2018-08-23)
PROC: 5A1D70Z Performance of Urinary Filtration, Intermittent, Less than 6 Hours Per Day (ICD-10-PCS; 2018-08-25)
PROC: 5A1D70Z Performance of Urinary Filtration, Intermittent, Less than 6 Hours Per Day (ICD-10-PCS; 2018-08-28)
PROC: 5A1D70Z Performance of Urinary Filtration, Intermittent, Less than 6 Hours Per Day (ICD-10-PCS; 2018-08-30)
PROC: 5A1D70Z Performance of Urinary Filtration, Intermittent, Less than 6 Hours Per Day (ICD-10-PCS; 2018-09-01)
DX: M54.16 Radiculopathy, lumbar region (principal); S72.114A Nondisplaced fracture of greater trochanter of right femur, initial encounter for closed fracture; N18.6 End stage renal disease; I12.0 Hypertensive chronic kidney disease with stage 5 chronic kidney disease or end stage renal disease; G93.40 Encephalopathy, unspecified; E27.40 Unspecified adrenocortical insufficiency; Z94.0 Kidney transplant status; Z99.2 Dependence on renal dialysis; R53.1 Weakness; F41.9 Anxiety disorder, unspecified; G31.84 Mild cognitive impairment of uncertain or unknown etiology; E78.5 Hyperlipidemia, unspecified; I25.10 Atherosclerotic heart disease of native coronary artery without angina pectoris; I25.2 Old myocardial infarction; Z95.5 Presence of coronary angioplasty implant and graft; G89.29 Other chronic pain; Z96.641 Presence of right artificial hip joint; M48.061 Spinal stenosis, lumbar region without neurogenic claudication; E11.22 Type 2 diabetes mellitus with diabetic chronic kidney disease; D63.8 Anemia in other chronic diseases classified elsewhere; E03.9 Hypothyroidism, unspecified; K21.9 Gastro-esophageal reflux disease without esophagitis; D35.2 Benign neoplasm of pituitary gland; M19.90 Unspecified osteoarthritis, unspecified site; I95.9 Hypotension, unspecified; R53.81 Other malaise; X58.XXXA Exposure to other specified factors, initial encounter; Y93.89 Activity, other specified; Y92.89 Other specified places as the place of occurrence of the external cause; Y99.8 Other external cause status; Z23 Encounter for immunization
CPT/HCPCS: 10112; 32100

== ENCOUNTER 2019-10-14 12:00 | Inpatient (IN) | payer OTHER ==
[~2019-10-14] VITALS: Ht 170.2 cm; Wt 72.3 kg
[~2019-10-14 12:00] MED LIST changes: +COREG6.25 MG PO
[2019-10-14 12:05] VITALS: BP 150/70
[2019-10-14 15:33] LABS: HEMOGLOBIN 11.3 gm/dL (12.0-15.0); MCH 25.7 pg (26.0-34.0); RDW 25.3 % (10.5-14.5)
[2019-10-14 15:35] LABS: HEMATOCRIT 36.9 % (37.0-47.0); MCHC 30.7 g/dL (28.0-37.0); MCV 83.8 fL (80.0-100.0); WBC 7.4 thou/uL (4.0-11.0)
[2019-10-14 15:51] LABS: ALBUMIN 2.2 g/dL (3.4-5.0); CALCIUM 7.9 mg/dL (8.5-10.1); CREATININE 5.2 mg/dL (0.6-1.0); TOTAL BILIRUBIN 0.6 mg/dL (<0.1-1.0); TOTAL PROTEIN 5.1 g/dL (6.4-8.2); TROPONIN-I 0.24 ng/mL (<0.06)
[2019-10-14 16:12] LABS: ABSOLUTE NEUTROPHILS 6.6 thou/uL (1.4-8.2); PLATELET COUNT 147 thou/uL (150-400); PLATELET ESTIMATE NORMAL; POLYCHROMASIA 1+
[2019-10-14 16:13] LABS: LARGE PLATELETS FEW
[2019-10-14 16:16] LABS: APTT 37.9 Seconds (24.5-32.8); INR 1.2; PROTIME 12.6 Seconds (9.3-11.4)
[2019-10-14 16:19] LABS: MAGNESIUM 1.8 mg/dL (1.8-2.4); POTASSIUM 3.7 mmol/L (3.5-5.1)
[2019-10-14 16:35] VITALS: BP 154/78
[2019-10-14 17:33] VITALS: BP 155/66
[2019-10-14 18:00] VITALS: BP 84/48
[2019-10-14] MEDS ORDERED: ACETAMINOPHEN500 MG PO (18:10)
[2019-10-14] MEDS ORDERED: CALCIUM ACETAT667 M2 PO (18:11)
[2019-10-14] MEDS ORDERED: ROBITUSSIN-COU237 ML PO (18:12)
[2019-10-14] MEDS ORDERED: LOPERAMIDE2 MG PO (18:13)
[2019-10-14] MEDS ORDERED: LEVO-T100 MCG PO (18:22)
[2019-10-14 19:53] VITALS: BP 143/72
[2019-10-15 00:52] VITALS: BP 127/66
[2019-10-15 05:03] VITALS: BP 115/53
[2019-10-15 07:11] VITALS: BP 124/57
[2019-10-15] MEDS ORDERED: CHILDREN'S ZYRT10 M1 PO (07:11)
[2019-10-15 07:26] LABS: CALCIUM 8.4 mg/dL (8.5-10.1); CREATININE 5.6 mg/dL (0.6-1.0); POTASSIUM 3.8 mmol/L (3.5-5.1)
[2019-10-15 07:36] LABS: HEMATOCRIT 31.9 % (37.0-47.0); HEMOGLOBIN 9.8 gm/dL (12.0-15.0); MCH 25.7 pg (26.0-34.0); MCHC 30.7 g/dL (28.0-37.0); MCV 83.7 fL (80.0-100.0); RBC 3.81 mil/uL (4.20-5.00); RDW 25.2 % (10.5-14.5); WBC 7.3 thou/uL (4.0-11.0)
--- NOTE | 2019-10-15 08:22 | NUR ---
PATIENT IS ALERT AND ORIENTED. PAITENT IS Q2TURN. PATIENT AT TIMES REFUSES TURNS. PATIENTS PAIN IS TREATED WITH PAIN MEDICATION. PATIENT IS ROOM AIR BLOOD GLUCOSE HAVE BEEN STABLE. PATIENT IS PENDING THORACENTESIS TODAY. PATIENT IS RESTING COMFORTABLY IN BED. WCM.
--- NOTE | 2019-10-15 09:59 | NUR ---
WOUND CARE CONSULT staff pharmacist hospital present, large area ecchymosis sacral area, and right posterior calf, pt unsure when occurred, closed scabbed wound 2nd and 3rd toes right foot, closed ulcer, scabbed, left lateral malleolus, alert and cooperative recommendations protective cream daily and prn sacral area, foam drsg to left malleolus, paint toe wounds right foot w/ betadine, staff pharmacist hospital informed of care, low air loss pump ordered for bed
[2019-10-15 10:42] LABS: CLARITY CLOUDY; COLOR DARK YELLOW; SOURCE LEFT CHEST; TOTAL VOLUME 57 mL
[2019-10-15 11:14] LABS: BF NUCLEATED CELLS 100; BF RBC 6355
[2019-10-15 11:45] VITALS: BP 136/66
[2019-10-15 13:19] LABS: BF MACROPHAGE 38; BF NEUTROPHILS 8
[2019-10-15 15:05] LABS: SOURCE THORACENTESIS
--- NOTE | 2019-10-15 15:19 | NUR ---
Patient is scheduled and consenting to dialysis today. Experienced Nausea and vomitting during thoracentesis, but recovered by the time she made it to CT. Unable to move independently, but cooperative when asked. Complains of being constantly cold and always requires multiple blankets.
[2019-10-15 15:30] VITALS: BP 112/48
--- NOTE | 2019-10-15 15:48 | NUR ---
ASSESSMENT: CM REVIEWED CHART AND SPOKE WITH ATTENDING WELL PATIENTS DAUGHTER. PT WAS ADMITTED FROM HOME WHERE SHE LIVES WITH HER DAUGHTER NORBERTO. PT WAS ADMITTED WITH HYPOGLYCEMIA. PT GOES TO [facility] T-TH-SAT 1115 FOR DIALYSIS. PTS DAUGHTER REPORTS WHEN PATIENT IS AT HOME SHE IS NORMALLY BEDBOUND BUT DOES HAVE A WHEELCHAIR. DAUGHTER REPORTS THEY USED BOARDS OVER THE STEPS TO GET HER IN THE HOUSE THAT ACT A RAMP. PT DID HAVE SPECIALIZED HH BUT DAUGHTER REPORTS THEY HAD NOT BEEN COMING RECENTLY DO THINKS SHE WAS DISCHARGED. CM ASKED IF CM COULD REACH OUT TO THEM AND SHE STATED SHE WOULD CHECK WITH HER SISTER FIRST WHO HAD BEEN IN CONTACT WITH THEM AND GET BACK TO . DAUGHTER REPORTS PT HAD BEEN TO [facility] IN THE PAST AND THEY DO NOT WANT HER GOING BACK TO A SNF AND PREFER TO BRING HER HOME WITH HH. CM WILL CONTINUE TO FOLLOW TO ASSIST NEEDED. CM NOTIFIED [facility] THAT PATIENT IS HERE AND THEY REQUEST FLOW SHEETS BE FAXED PRIOR TO DISCHARGE TO FAX [phone]. CM WILL COTINUE TO FOLLOW.
--- NOTE | 2019-10-15 18:44 | NUR ---
PT ON DIALYSIS THIS EVENING, DAUGHTER UPDATED ON POC EARLIER. DAUGHTER STATES SHE CARES FOR MOTHER AT HOME, SAYS SHE HAS BEEN HAVING TO CHANGE MOTHER FROM INCONTINENCE SPELLS AND HAVING TO LIFT HER INTO WHEELCHAIR FOR DIALYSIS, STATES THE PT IS UNABLE TO BEAR WEIGHT HARDLY AT ALL NOW. SHE SAYS SHE HAS REQUESTED A HOSPITAL BED IN THE PAST AND BEEN DENIED, STATES SHE WOULD LIKE TO HAVE A LIFT IF ABLE, SAYS MOTHER DOES NOT WANT HOME HEALTH TO COME IN THE HOUSE BUT THAT ANY OTHER ASSISTANCE WOULD BE GREATLY APPRECIATED.
[2019-10-15 20:10] VITALS: BP 145/68
--- NOTE | 2019-10-16 03:27 | NUR ---
ASSUMED CARE FROM DAY SHIFT PT JUST COMPLETED DIAYLSIS NO CONCERNS VOICED, IV FLUIDS INFUSING BLOOD GLUCOSE 104 AT HS. REGISTERED DIETICIAN SHOWS NSR .PICTURES TAKEN OF NECTORIC TOES ON RIGHT FOOT ADN LEFT ANKLE WOUNDS , PLACED IN CHART. PT RESTED WELL THROUGHOUT HOURLY ROUNDS WILL CONITNUE WITH CURRENT PLAN OF CARE AND WILL REPORT CHANGES.
[2019-10-16 05:14] VITALS: BP 127/62
--- NOTE | 2019-10-16 07:32 | EKG ---
[address] [place] [address] ELECTROCARDIOGRAM REPORT Name: NELA MILLAN Room #: 364-P ADM IN M.R.#: [id number] Admission: 10/14/19 Attend Phys: Curt Rinaldi MD Discharge: Date of : 41 Report #: [id number] THIS REPORT FOR: //name// [facility] Test Date: 2019-10-15 Test Time: 13:08:26 Pat Name: NELA MILLAN Department: Room: 364 Gender: F Arabic Professor: CHARLIE : 1940 Requested By: Curt Rinaldi Order Number: [id number] MD: Milad Cr Measurements Intervals [place] Rate: 70 P: [place]: QRS: 6 QRSD: 101 T: 145 QT: 433 QTc: 468 Interpretive Statements Baseline artifact limits rhythm interpretation Probable sinus rhythm Nonspecific ST and T wave abnormality Compared to ECG 08/08/2018 18:02:[address] and T wave abnormality is now present Electronically Signed On 10-16-2019 7:32:35 PAPER FEEDER by Milad Cr [email or web address] <ELECTRONICALLY SIGNED> By: Milad Cr MD, [facility] 10/16/19 0732 1308 1308 Milad Cr MD, [facility] /EPI
[2019-10-16 08:30] VITALS: BP 141/64
[2019-10-16 10:08] LABS: HEP B SURFACE Ab(ANTI-HBS Non Reactive (()); HEPATITIS B SURFACE AG Negative (Negative)
[2019-10-16 12:08] VITALS: BP 143/69
[2019-10-16 13:41] VITALS: BP 143/69
--- NOTE | 2019-10-16 13:55 | NUR ---
ON-GOING ASSESSMENT: CM REVIEWED CHART AND SPOKE WITH ATTENDING. PT IS POSSIBLE DISCHARGE BACK HOME ON MONDAY WITH HOME HEALTH SERVICES ([facility]). CM SPOKE WITH [facility] WHO REPORTS THEY CAN ACCEPT HER BACK FOR HH AT DISCHARGE AND NOTIFY THEM AT [phone] AND ONCE DISCHARGE ORDERS HAVE BEEN WRITTEN FAX THEM TO THEIR FAX [phone]. ALSO NOTIFY [facility] WHEN PATIENT IS DISCHARGING AT [phone]. CM FAXED CLINICAL TO THEM BUT FAX DISCHARGE ORDERS TO THEM AT THEIR FAX:[phone]. PT WILL NEED HELP WITH TRANSPORTATION HOME AND LIVES WITH HER DAUGHTER NORBERTO. NORBERTO IS STATING SHE CAN BRING UP PATIENTS WHEELCHAIR IF YOU CONTACT HER AT [phone] AND THEN WHEELCHAIR TRANSPORTATION WILL NEED TO BE ARRANGED BY [facility]:[phone].
[2019-10-16 15:08] LABS: BODY FLUID ALBUMIN 1.4 g/dL (Not Estab.); BODY FLUID AMYLASE 37 U/L (()); BODY FLUID GLUCOSE 78 mg/dL (()); BODY FLUID LDH 120 IU/L (()); BODY FLUID PROTEIN 2.4 g/dL (())
[2019-10-16 15:38] VITALS: BP 112/53
--- NOTE | 2019-10-16 19:53 | NUR ---
pt is A&OX3, PT is tolerated her dialysis today, removal 3000ml fluid, RN has called dr to report pt's low BS 48 at lunch time, new order receivd, pt's vs and bs are stable at this time.
[2019-10-16 21:09] VITALS: BP 134/61
--- NOTE | 2019-10-17 02:29 | NUR ---
ASSUMED CARE FROM DAY SHIFT PT RESTING IN BED DAUGHTER AT BEDSIDE , PT DENIES PAIN OR SOA, PROPERTY FIELD ADJUSTER SHOWS NSR. BLOOD GLUCOSE STABLE WITH D10 INFUSING , PT ATE LIGHT SNACK AT HS AND TOLERATED WELL. RESTED WELL THROUGHOUT HOURLY ROUNDS, WILL CONITINUE WITH CURRENT PLAN OF CARE AND REPORT CHANGES AND ABNORMAL FINDINGS.
[2019-10-17 05:09] VITALS: BP 150/76
[2019-10-17 07:38] VITALS: BP 133/68
[2019-10-17 11:20] VITALS: BP 141/69
[2019-10-17 15:44] VITALS: BP 132/64
--- NOTE | 2019-10-17 19:37 | NUR ---
pt is A&OX3, PT is continuing IV D10W IV @ 50ml/hr , pt's BS keeps at 90-110 today, pt has loosed stool x3 times, stool has sent to check c-diff, pt denies n/v and sob at this time.
[2019-10-17 19:46] VITALS: BP 136/70
--- NOTE | 2019-10-18 02:49 | NUR ---
ASSUMED CARE OF PT @1900 PT ASSESSED AT START OF SHIFT FREQ LOOSE STOOL AT THIS SHIFT ABOUT 4. ON ISOLATION PRECAUTIONS. IV INTACT AND D10 INFUSING. BLOOD SUGAR IN TH 131 TONIGHT. DTR AT BEDSIDE FOR THE NIGHT. PT TURNED FREQ. BARRIER CREAM APPLIED ON BUTTOCK AREA AND LEFT TO AIR. CALLED DR COLVIN FOR ODERS ON TELE RTHYM SJHOWING SLIGHT ST ELEVATION COMPARED TO BASE LINE EKG. ORDERS PLACED FOR EKG IN THE AM. WILL CONT WITH POC TILL EOS.
[2019-10-18 04:09] VITALS: BP 136/67
[2019-10-18 07:52] VITALS: BP 144/63
--- NOTE | 2019-10-18 07:55 | NUR ---
PER DR BRUNO ATTEMPTING TO WEAN DOWN D10 GTT. RATE DECREASED AT THIS TIME FROM 50 ML/HR TO 40 ML/HR. WILL CHECK BLOOD GLUCOSE MORE FREQUENTLY WHILE WEANING.
--- NOTE | 2019-10-18 10:15 | NUR ---
ON-GOING ASSESSMENT: CM REVIEWED CHART AND SPOKE WITH ATTENDING. PT IS SW REVIEWED CHART AND SPOKE WITH NURSING AND ATTENDING PHYSIICAN. PT IS NOT MEDICALLY STABLE FOR DISCHARGE. PT WITH POSITIVE C.DIFF RESULTS AND WILL BE STARTED ON PO VANCO. CM UPDATED [facility] WHO REPORTS THEY CAN ACCEPT HER BACK FOR HH AT DISCHARGE AND NOTIFY THEM AT [phone] AND ONCE DISCHARGE ORDERS HAVE BEEN WRITTEN FAX THEM TO THEIR FAX [phone]. ALSO NOTIFY [facility] WHEN PATIENT IS DISCHARGING AT [phone]. CM FAXED CLINICAL TO THEM BUT FAX DISCHARGE ORDERS TO THEM AT THEIR FAX:[phone]. PT WILL NEED HELP WITH TRANSPORTATION HOME AND LIVES WITH HER DAUGHTER NORBERTO. NORBERTO IS STATING SHE CAN BRING UP PATIENTS WHEELCHAIR IF YOU CONTACT HER AT [phone] AND THEN WHEELCHAIR TRANSPORTATION WILL NEED TO BE ARRANGED BY [facility]:[phone].
--- NOTE | 2019-10-18 11:52 | NUR ---
WOUND CARE F/U pt alert and cooperative, sacral area less shane, improving, no open areas, r calf area less ecchymosis present, improving, r foot toes, 2ND and 3RD remain closed w/ dry eschar, no drainage, left lateral malleolus wound improving, pink viable tissue present, scant drainage RECOMMENDATIONS; cont w/ protective cream to sacrum, cont w/ painting r foot toes, 2nd and 3rd w/ betadine, foam drsg to left lateral malleolus wound 3x week staffing specialist informed
[2019-10-18 12:36] VITALS: BP 142/75
[2019-10-18 16:06] VITALS: BP 143/67
[2019-10-18 20:16] VITALS: BP 165/69
--- NOTE | 2019-10-19 03:08 | NUR ---
PATIENT IS ADVANCING SLOWLY IN HER CARE PLAN. VITAL SIGNS STABLE WITH PATIENT HAVING NO COMPLAINTS OF NAUSEA. PATIENT DID COMPLAIN FREQUENTLY OF PAIN IN LEFT HIP WHICH WAS TREATED THROUGH MEDICATIONS AND REPOSITIONING. FULLY ORIENTED, PATIENT IS ABLE TO CALL APPROPRIATELY FOR NEEDS AND PARTICIPATE IN CARE. PATIENTS BLOOD SUGAR MONITORED FREQUENTLY DUE TO RECENT HYPOGLYCEMIA WITH D50 RAN AT DOCTOR ORDERED 50 CC PER HOUR. WOUND CARE PER ORDER WITH PATIENT TURNED FREQUENTLY AND SKIN CARE PROVIDED. MULTIPLE INCIDENTS OF FECAL INCONTINENCE NOTED. CONTINUE PLAN OF CARE.
[2019-10-19 05:55] VITALS: BP 143/60
[2019-10-19 07:50] VITALS: BP 157/74
--- NOTE | 2019-10-19 09:54 | EKG ---
[address] [place] [address] ELECTROCARDIOGRAM REPORT Name: NELA MILLAN Room #: 364-P ADM IN M.R.#: [id number] Admission: 10/14/19 Attend Phys: Curt Rinaldi MD Discharge: Date of : 42 Report #: [id number] THIS REPORT FOR: //name// [facility] Test Date: 2019-10-18 Test Time: 07:34:46 Pat Name: NELA MILLAN Department: Room: 364 Gender: F Curriculum Counselor: Enmanuel GEE : 1940 Requested By: Curt Rinaldi Order Number: [id number] MD: Milad Cr Measurements Intervals [place] Rate: 61 P: ID: QRS: 20 QRSD: 100 T: 105 QT: 426 QTc: 429 Interpretive Statements Sinus rhythm Nonspecific ST and T wave abnormality Compared to ECG 10/15/2019 13:08:26 No significant change was found Electronically Signed On 10-19-2019 9:54:15 SLOPE RUNNER by Milad Cr [email or web address] <ELECTRONICALLY SIGNED> By: Milad Cr MD, [facility] 10/19/19 0954 3 3 Milad Cr MD, [facility] /EPI
[2019-10-19 11:37] VITALS: BP 147/71
[2019-10-19 15:48] VITALS: BP 128/54
[2019-10-19 15:58] LABS: HEMOGLOBIN 9.3 gm/dL (12.0-15.0); MCH 25.7 pg (26.0-34.0); MCV 85.5 fL (80.0-100.0); PLATELET COUNT 153 thou/uL (150-400); RBC 3.63 mil/uL (4.20-5.00); RDW 24.8 % (10.5-14.5); WBC 5.9 thou/uL (4.0-11.0)
[2019-10-19 16:07] LABS: CALCIUM 8.1 mg/dL (8.5-10.1); CREATININE 1.5 mg/dL (0.6-1.0); POTASSIUM 3.9 mmol/L (3.5-5.1)
[2019-10-19 16:25] LABS: ABSOLUTE NEUTROPHILS 5.1 thou/uL (1.4-8.2); ANISOCYTOSIS 1+
--- NOTE | 2019-10-19 18:18 | NUR ---
PATIENT ALERT AND ORIENTED X4, PAIN CONTROLLED WITH MEDICATION. PATIENT COMPLETED DIALYSIS THIS MORNING, 1.5 L TAKEN OFF. PATIENT TOERATED DINNER WELL. HAND X1 BOWEL MOVEMENT. SPOKE WITH DR. SILVA ABOUT MEDICATION CHANGES TO INCREASE BLOOD SUGAR. D10 DISCONTINUED, BLOOD SUGAR REMAINED ABOVE 100. FAMILY AND PATIENT UPDATED ON THE PLAN OF CARE. NO SIGNS OF ACUTE DISTRESS NOTED AT THIS TIME. WILL CONTINUE TO MONITOR.
[2019-10-19 20:23] VITALS: BP 142/74
--- NOTE | 2019-10-20 03:32 | NUR ---
Patient has been cleaned and repositioned every two hours NOC; keeping her bottom clean and protected with barrier cream to help prevent or worsen skin breakdown.
[2019-10-20 04:08] VITALS: BP 130/64
[2019-10-20 08:10] VITALS: BP 139/78
[2019-10-20 10:56] VITALS: BP 126/59
[2019-10-20 16:59] VITALS: BP 139/58
--- NOTE | 2019-10-20 18:27 | NUR ---
PT ALERT AND ORIENTED TIMES FOUR WITH PERIODS OF CONFUSION. VSS, 97%SCOT SR ON TELE. PT DENIES PAIN/SOA. PT TOLERATES MEDS AND MEALS. PT TURNED FREQUENTLY THIS SHIFT. PT DAUGHTER AT BEDSIDE. WILL CONTINUE TO MONITOR.
[2019-10-20 19:17] VITALS: BP 133/60
[2019-10-21 01:05] LABS: GLYCOHEMOGLOBIN (HGB A1C) 4.2 % (4.8-5.6)
--- NOTE | 2019-10-21 03:22 | NUR ---
PATIENT IS PROGRESSING SLOWLY IN HER CARE PLAN. VITAL SIGNS STABLE WITH PATIENT HAVING NO COMPLAINTS OF NAUSEA. PATIENT DID COMPLAIN OF CHRONIC RIGHT HIP PAIN WHICH WAS TREATED APPROPRIATELY THROUGH MEDICATION AND NON PHARMACOLOGICAL INTERVENTION. FULLY ORIENTED, PATIENT IS ABLE TO CALL APPROPRIATELY FOR NEEDS AND PARTICIPATE IN CARE. SHE HAS BEEN FORGETFUL. FREQUENT TURNS WITH SKIN CARE DUE TO FECAL INCONTINENCE. WOUND CARE PER ORDER. POSSIBLE DISCHARGE SOON. CONTINUE PLAN OF CARE.
[2019-10-21 04:07] VITALS: BP 121/59
[2019-10-21 08:13] VITALS: BP 137/66
[2019-10-21 12:20] VITALS: BP 162/66
--- NOTE | 2019-10-21 13:19 | NUR ---
PATIENT SEEN BY DR. BARR THIS DATE FOR REHAB CONSULT. PATIENT MAY BE A REHAB CANDIDATE. PATIENT DOES HAVE QUALIFYING REHAB DIAGNOSIS. WILL CONTINUE TO FOLLOW TO SEE HOW PATIENT PROGRESSES IN THERAPY FOR FUNCTIONAL NEEDS AND TOLERANCE. SILK TRIMMER INFORMED. THANK YOU FOR THIS REFERRAL.
--- NOTE | 2019-10-21 15:43 | NUR ---
Assumed care approx. 0700 this AM. Patient given tylenol for pain management after working with PT; patient up to the side of the bed and dangled. Stools are becoming more soft. Pt reports decrease in abdominal pain. Patient turned Q2H. Blood sugars have been stable. Special precautions in place. Pt evaluated for rehab today. Patient's daughter Richie updated on the phone. Patient progressing toward goals.
--- NOTE | 2019-10-21 15:56 | NUR ---
ON-GOING ASSESSMENT: CM SPOKE WITH 5Krzysztof LIASON WHO STATES PATIENT MAY BE A CANIDATE FOR 5 REHAB BUT WILL KNOW MORE TOMORROW. CM NOTIFIED ATTENDING. CM WILL CONTINUE TO FOLLOW TO ASSIST NEEDED AND AWAIT ON INPUT FROM 5N.
[2019-10-21 16:35] VITALS: BP 145/71
[2019-10-21 20:35] VITALS: BP 141/76
[2019-10-22 05:29] VITALS: BP 130/70
--- NOTE | 2019-10-22 06:20 | NUR ---
PT IS SCHEDULED FOR DIALYSIS TODAY. PT HAS HAD MULTIPLE BOUTS OF BOWEL INCONTINENCE. Q2 TURNS, LOW LOSS AIR MATTRESS IN PLACE. ISOLATION PRECAUTIONS FOR POSITIVE C-DIFF IN PLACE. PT ASKED FOR TYLENOL AROUND 0500. REASSESSED AND ACHIEVED DESIRED EFFECTS. HOURLY ROUNDING.
[2019-10-22 07:47] VITALS: BP 138/72
--- NOTE | 2019-10-22 09:06 | PATH ---
[facility] [address] [place] [address] PATHOLOGY RPT PROCEDURE Name: NELA MILLAN Room #: 364-P ADM IN M.R.#: [id number] Admission: 10/14/19 Date of : 42 Discharge: Report #: [id number] Path Case #: [id number] Note [facility] Accession Number: [id number] TESTS RESULT FLAG UNITS REF RANGE LAB Clinician Provided Cytology Information No. of containers..01 Other (Miscellaneous) Source: PLEURAL FLUID DIAGNOSIS: 02 PLEURAL FLUID NEGATIVE FOR MALIGNANT EPITHELIAL CELLS. MESOTHELIAL CELLS ARE PRESENT. THIS INTERPRETATION INCLUDES EVALUATION OF A CELL BLOCK. Pathologist ICD10: 02 N18.6 Signed out by: Destini Shields MD, Pathologist NPI- [id number] Performed by: Moraima Pitts, Vice President Of Operations ([facility]) Gross description: 01 24 ML, ORANGE, CLOUDY /LCS 11/19/1840 0000 Local FLAG LEGEND: L-Low Normal,H-High Normal,LL-Alert Low,HH-Alert High <-Panic Low,>-Panic High,A-Abnormal,AA-Critical Abnormal Performed at: [address] [facility] [address] [place] [address] Carlyle Benjamin MD, [address] [address] Destini Shields MD, Specimen Comment: A courtesy copy of this report has been sent to [phone], [phone] Specimen Comment: [id number] Specimen Comment: [id number] Specimen Comment: Report sent to DR MCGREGOR / DR COLVIN Specimen Comment: A duplicate report has been generated due to demographic updates. Performed at: [address], [place], [place] [id number] [address] [address] PATHOLOGY RPT PROCEDURE Name: NELA MILLAN Room #: 364-P ADM IN M.R.#: [id number] Admission: 10/14/19 Date of : 42 Discharge: Report #: [id number] Path Case #: [id number] MD Carlyle Benjamin MD Phone: [phone]
--- NOTE | 2019-10-22 09:13 | NUR ---
WOUND CARE F/U PT ALERT AND COOPERATIVE, ASSESSED PT W/ AVIATION CONSULTANT RUBEN, SACRAL AREA GREATLY IMPROVED, NO OPEN AREAS, SKIN COLOR NORMAL, STILL INCONT OF STOOL AT TIMES, R CALF IMPROVING, ECCHYMOSIS FADING, R FOOT 2ND AND 3RD TOES SAME, DRSG INTACT L MALLEOLUS, WAS CHANGED YESTERDAY. ENCOURAGED PT TO TURN OFF LOADING, PRESSURE RELIEF RECOMMENDATIONS; CONT SAME TX W/ PROTECTIVE CREAM TO SACRAL AREA DAILY AND PRN, CONT W/ BETADINE PAINT TO R FOOT TOES, 2ND AND 3RD. CONT W/ BORDER FOAM TO L ANKLE, CONT W/ LOW AIR LOSS PUMP TO BED, AVIATION CONSULTANT AWARE
--- NOTE | 2019-10-22 09:16 | HC ---
[facility] [place] [address] CONSULTATION Name: NELA MILLAN Room #: 364-P ADM IN M.R.#: [id number] Admission: 10/14/19 Attend Phys: Curt Rinladi MD Discharge: Date of : 41 Report #: [id number] THIS REPORT FOR: //name// CC: Curt Rinaldi DATE OF SERVICE: 10/21/2019 ENDOCRINE CONSULTATION NOTE CONSULTING PHYSICIAN: Dr. Rinaldi. REASON FOR CONSULTATION: Hypoglycemia. 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 Also, the patient has a background is noted for end-stage renal disease as well as osteoarthritis. The patient was presented here by EMS after she was found unresponsive by her daughter and on EMS arrival, her blood glucose was found to be 10. The patient notes that she has not had a good appetite over the days preceding this occurrence, but does not recall having ever been exposed to the issue of hypoglycemia in the past. The patient is not on any hypoglycemic meds that she recalls. Again, the patient is known to have hypothyroidism, likely central in origin since her pituitary surgery in 2014 and is on active therapy with levothyroxine 75 mcg daily. Also, she had developed adrenal insufficiency since her pituitary surgery and is on treatment with prednisone 7.5 mg daily. REVIEW OF SYSTEMS: CONSTITUTIONAL: Fatigue, tiredness, poor appetite, but not fever or chills or significant body weight changes. HEENT: Negative for sore throat, sinus pain, ear pain, or ear drainage. PULMONARY: Occasional shortness of breath and cough, but no hemoptysis. CARDIAC: Negative for chest pain, syncope or presyncope, but noted for intermittent lower extremity swelling, occasional palpitations. GASTROINTESTINAL: Occasional abdominal discomfort and nausea, but no vomiting or hematemesis. NEUROLOGY: Negative for seizure activity. Severe intractable headaches or persistent numbness. The patient has one episode of loss of consciousness as noted above prior to presentation. PSYCHIATRIC: Negative for hallucinations, delusions, or other significant changes. Otherwise, review of systems noncontributory other than those mentioned in HPI. [address] [address] CONSULTATION Name: NELA MILLAN Room #: 364-P [facility] IN .R.#: [id number] Admission: 10/14/19 Attend Phys: Curt Rinaldi MD Discharge: Date of : 41 Report #: [id number] PAST MEDICAL HISTORY: 1. Pituitary tumor, status post resection in 2014. 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 4. End-stage renal disease. 5. Hyperlipidemia. 6. Coronary artery disease, status post [place] and coronary artery stent placement. 7. Chronic back pain. 8. Anemia. 9. Hypertension. PAST SURGICAL HISTORY: Noted for: 1. AV fistula placement. 2. . OUTPATIENT MEDICATIONS: Include: 1. Lovastatin 20 mg at bedtime. 2. Nephro-Remy 1 tab daily. 3. Levothyroxine 75 mcg daily. 4. Protonix 40 mg daily. 5. Sensipar 60 mg with dialysis. 6. Prednisone 7.5 mg daily. 7. Aranesp 50 mcg IV with dialysis weekly. 8. Ferrlecit. 9. Aspirin. 10. Carvedilol 6.25 mg b.i.d. ALLERGIES: NOTED TO HEPARIN AND ADHESIVE TAPE. FAMILY HISTORY: Noncontributory. SOCIAL HISTORY: The patient is a . She lives with her 2 daughters and 3 granddaughters. She denies use of tobacco, alcohol or illicit drugs. PHYSICAL EXAMINATION: GENERAL: Pleasant -Macedonian female patient who is not in apparent pain or distress. VITAL SIGNS: Blood pressure is 162/66 mmHg, heart rate is 74 beats per minute, respirations 16 per minute, temperature 36.3 degrees. CONSTITUTIONAL: The patient is lying in bed comfortably, not in apparent pain or distress. HEENT: Anicteric sclerae. Intact extraocular motions. NECK: Supple, without JVD, carotid bruits or lymphadenopathy. I do not appreciate thyromegaly. CHEST: Noted for limited air entry bilaterally with scattered rales and rhonchi. [address] [address] CONSULTATION Name: NELA MILLAN Room #: 364-P [facility] IN M.R.#: [id number] Admission: 10/14/19 Attend Phys: Curt Rinaldi MD Discharge: Date of : 41 Report #: [id number] HEART: Regular rate and rhythm without murmurs or gallops. ABDOMEN: Soft and lax without tenderness or organomegaly. She has active bowel sounds. EXTREMITIES: Lower extremity exam is noted for trace ankle edema bilaterally. No skin breaks. NEUROLOGIC: Awake, alert and oriented to time, place and person. The remainder of examination is nonfocal. PSYCH: Flat mood and affect, interactive, answers my questions appropriately. LABORATORY RESULTS: Blood glucose values were reviewed since her presentation and over the first few days she had blood glucose values as low as 48 and 42 mg/dL. However, there has not been documented hypoglycemia since 10/18/2019. Otherwise, we have a sodium 137, potassium 3.9, chloride 99, CO2 of 30, anion gap 8, BUN 7, creatinine 1.5, glucose is 147, AST 54, lipase 207. Total bilirubin 0.6, calcium 8.1, phosphorus 3.7, magnesium 1.8, alkaline phosphatase 258, ALT 30, total protein 5.1, albumin 2.2. Lactic acid 1.8. Total CPK 35. BNP 17,515. CRP 42.9, white blood count 5.9, hemoglobin 9.3, hematocrit 31, platelets 153. TSH undetectable. Vitamin B12 is 1140. Hemoglobin A1c 4.2. ASSESSMENT AND PLAN: 1. Hypoglycemia. As noted above, the patient had severe symptomatic hypoglycemia resulting in neuroglycopenic symptoms, which prompted her current presentation and admission. There are multiple factors that one could easily incriminate in this presentation including her end-stage kidney disease, but also significantly adrenal insufficiency. I believe that this combination along with the patient's diminished p.o. intake had contributed significantly to the severe hypoglycemic episodes she came in with. The patient was counseled at length about these possibilities. She expressed a good understanding of these issues. I believe that it would be prudent to maintain adequate glucocorticoid replacement for the patient going forward and along those lines I switched to hydrocortisone in the form of 20 mg p.o. q.a.m. and 10 mg q.p.m., might actually give us a bit more adequate coverage that way as opposed to prednisone daily. In order to ensure that the patient is not dealing with a hyperinsulinemic entity, I will check insulin, proinsulin and C-peptide levels as well. 2. Hypothyroidism. 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 I will evaluate the adequacy of her current dose with a free T4 level. TSH is not actionable in the setting of central hypothyroidism as it does not connect at all with the patient's existing thyroid hormone imbalance. 3. Adrenal insufficiency. As noted above, I would rather resort to hydrocortisone twice a day coverage as opposed to a single daily prednisone coverage for more adequate adrenal need provisions. The b.i.d. dosing might help us sustain more continued glucocorticoid presence on days of hemodialysis. The patient was counseled about the need for added glucocorticoid dosing on days of severe physiologic stress, which she seemed to understand well. [address] [address] CONSULTATION Name: NELA MILLAN Room #: 364-P [facility] IN .R.#: [id number] Admission: 10/14/19 Attend Phys: Curt Rinaldi MD Discharge: Date of : 41 Report #: [id number] I have reviewed the patient's clinical care notes outlining the events, progression, and care elements from the beginning of her hospital stay as well as the pertinent laboratory data for more than 35 minutes. I certainly appreciate this consultation by Dr. Rinaldi. <ELECTRONICALLY SIGNED> By: Marcelo Sharpe MD 10/22/19 0916 [id number] MD octavio Dorman
--- NOTE | 2019-10-22 10:06 | NUR ---
Followup: Sacral wound improving per wound care team. +cdiff. Intake 50-75% most meals with variable intake of glucerna/magic cup supplements 0-100%. Had a questionable wt 159 lb, other weights trending 170 lb. Possible [facility] admission. Change nutrition status to low risk with appropriate nutrition interventions in place. Request reweigh
[2019-10-22 11:05] VITALS: BP 136/61
[2019-10-22] MEDS ORDERED: FIRVANQ50 MG/1 ML PO (12:19)
[2019-10-22] MEDS ORDERED: CHOLESTYRAMINE L4 GM PO (12:19)
[2019-10-22] MEDS ORDERED: PANTOPRAZOLE SO40 M1 PO (12:20)
[2019-10-22] MEDS ORDERED: NORVASC5 MG PO (12:20)
[2019-10-22] MEDS ORDERED: HYDROCORTISONE10 MG PO ×2 (12:21)
--- NOTE | 2019-10-22 12:53 | NUR ---
ON-GOING ASSESSMENT: CM REVIEWED CHART AND SPOKE WITH ATTENDING. [facility] CAN ACCEPT PATIENT FOR ACUTE REHAB AND CM NOTIFIED ATTENDING. PT HAS ORDERS TO DISCHARGE TO [facility] TODAY. CM NOTIFIED PATIENTS DAUGHTER NORBERTO WHO STATES SHE, PT, AND HER SISTER ARE ALL ON BOARD WITH THE PLAN. CM NOTIFIED LIASON AT [facility] .
--- NOTE | 2019-10-22 13:48 | NUR ---
PT ALERT AND ORIENTED TIMES FOUR WITH PERIODS OF CONFUSION. VSS.100%RA. PT TOLERATES MEDS, VERY POOR APPETITE. PT TURNED FREQUENTLY THIS SHIFT. PLANS TO TRANSFER TO [facility] TODAY.
[2019-10-22 15:36] VITALS: BP 146/71
[2019-10-22 18:19] VITALS: BP 146/71
--- NOTE | 2019-10-22 20:08 | NUR ---
PT DISCHARGED TO [facility] REHAB, DAY NURSE CALLED REPORT. DAUGHTER PRESENT. PT HAD ALL OF HER BELONGINGS TAKEN WITH HER.
[2019-10-23 12:11] LABS: C-PEPTIDE 3.4 ng/mL (1.1-4.4); INSULIN 2.7 uIU/mL (2.6-24.9)
--- NOTE | 2019-10-27 08:35 | HC ---
[facility] [place] [address] CONSULTATION Name: NELA MILLAN Room #: 364-P [facility] IN M.R.#: [id number] Admission: 10/14/19 Attend Phys: Curt Rinaldi MD Discharge: 10/22/19 Date of : 42 Report #: [id number] THIS REPORT FOR: //name// CC: Curt Rinaldi DATE OF SERVICE: 10/15/2019 REASON FOR CONSULTATION: End-stage renal disease. REASON FOR PRESENTATION: Hypoglycemia, found unresponsive by her family member. HISTORY OF PRESENT ILLNESS: This is a very well-known patient to me. She is in end-stage renal disease, maintained on hemodialysis every Monday, and Monday. She was found unresponsive by her daughter. Blood sugar upon arrival of EMS was found to be 10. The patient is maintained on hemodialysis every Monday, and Monday and missed her dialysis on Monday. She stated that she has not been feeling well and that is the reason she missed her dialysis. She is well known to me. She has history of adrenal insufficiency and is maintained on prednisone. I am not really sure if she has been missing her steroids or not. I am consulted to manage her end-stage renal disease. PAST MEDICAL HISTORY: 1. End-stage renal disease, maintained on hemodialysis every Monday, and Monday. 2. Left kidney transplant, status post rejection. 3. Adrenal insufficiency, maintained on chronic prednisone. 4. Pituitary tumor post-removal. 5. Hyperlipidemia. 6. Coronary artery disease. 7. Status post C-sections. 8. Right total hip replacement. 9. Anemia of chronic disease. 10. Hypertension. MEDICATIONS: 1. Lovastatin. 2. Folic acid. 3. Levothyroxine. 4. Pantoprazole. 5. Sensipar. 6. Prednisone. 7. Aspirin. 8. Carvedilol. ALLERGIES: HEPARIN and ADHESIVES. [facility] [address] [place] [address] CONSULTATION Name: NELA MILLAN Room #: 364-P [facility].#: [id number] Admission: 10/14/19 Attend Phys: Curt Rinaldi MD Discharge: 10/22/19 Date of : 42 Report #: [id number] SOCIAL HISTORY: She lives with her family members. REVIEW OF SYSTEMS: GENERAL: Significant for weakness, but no fever or chills. CARDIOVASCULAR: No chest pain or palpitation. PULMONARY: Significant for shortness of breath. GASTROINTESTINAL: No nausea or vomiting. MUSCULOSKELETAL: Occasional back pain and knees pain. SKIN: No rash or ulcerations, but she has significant right lower extremity swelling after her right hip surgery. NEUROLOGICAL: No headache, no dizziness; however, she was found nonresponsive by her daughter due to hypoglycemia. PHYSICAL EXAMINATION: GENERAL: The patient is alert, oriented. VITAL SIGNS: Blood pressure is 124/57, temperature is 36.8, pulse rate is 75, respiratory rate is 18. HEAD AND NECK: No jugular venous distention. CHEST: Decreased air entry on the left side with some rhonchi. CARDIOVASCULAR: No rub detected. ABDOMEN: Soft, nontender. EXTREMITIES: Lower extremities, +2 edema on the right lower extremity. LABORATORY DATA: Reviewed. Hemoglobin is 9.8, White blood cell count is 7.3, platelet 157, sodium 138, potassium 3.8, BUN 37, creatinine 5.6. Blood sugar this morning is 72. IMPRESSION AND PLAN: 1. End-stage renal disease. 2. New onset left-sided pleural effusion. 3. Hypoglycemia. 4. Known adrenal insufficiency. 5. Diabetes mellitus. 6. Hypertension. 7. Anemia. 8. We will arrange for the patient to have her usual hemodialysis every Monday, and Monday. She is currently maintained on D10 for her hypoglycemia. 9. Pulmonary team had been consulted regarding her pleural effusion and plan is for the patient to proceed with a thoracentesis, diagnostic and therapeutic. 10. Resume her home steroids. [address] [address] CONSULTATION Name: NELA MILLAN Room #: 364-P [facility]#: [id number] Admission: 10/14/19 Attend Phys: Curt Rinaldi MD Discharge: 10/22/19 Date of : 42 Report #: [id number] 11. Further plans will be implemented after obtaining diagnostic studies for her right-sided thoracentesis. <ELECTRONICALLY SIGNED> By: Bianca Howard MD 10/27/19 [id number] Bianca Howard MD /nt
--- NOTE | 2019-10-29 16:07 | HC ---
[facility] [place] [address] CONSULTATION Name: NELA MILLAN Room #: 364-P [facility] IN M.R.#: [id number] Admission: 10/14/19 Attend Phys: Curt Rinaldi MD Discharge: 10/22/19 Date of : 41 Report #: [id number] THIS REPORT FOR: //name// CC: Curt Rinaldi DATE OF SERVICE: 10/21/2019 HISTORY OF PRESENT ILLNESS: The patient is a 79-year-old -Latvian female who was admitted to [facility] with acute mental status changes, noted to be unresponsive. She has chronic kidney disease, on hemodialysis and has had problems with severe diarrhea. She had a low temperature. Her blood glucose was only 10. She was noted to have severe hypoglycemia with multifactorial, toxic metabolic encephalopathy. She also has a left pleural effusion, is being followed by Pulmonary Medicine and has had a thoracentesis. This is thought to be a transudative effusion. She has adrenal insufficiency and pituitary insufficiency. The severe diarrhea has been evaluated, noted to be C. diff positive and she is on oral vancomycin. We are seeing her in Rehabilitation Medicine consultation. PAST MEDICAL HISTORY: End-stage renal disease, on hemodialysis; left kidney transplant in 2007 with subsequent rejection; pituitary tumor, status post removal, noted to be benign; hyperlipidemia; coronary artery disease; [place] with cardiac stents x 2; prior right total hip replacement; controlled GERD; anemia; hypertension. MEDICATIONS: Please see the full medication listing. ALLERGIES: HEPARIN AND ADHESIVE. HABITS: No history of tobacco or alcohol abuse. FAMILY HISTORY: Noncontributory. SOCIAL HISTORY: Daughter lives with her and there is another daughter as well. They trade-off and assist her. They are basically with her at all times. She has been utilizing a wheelchair, especially the last couple of months or so and they have arranged for a functional ramp basically with some boards over the steps. The family has been lifting her into the wheelchair and the use apparently a mechanical lift when she is being dialyzed. REVIEW OF SYSTEMS: No current complaints of chest pain, shortness of breath, or abdominal discomfort. PHYSICAL EXAMINATION: GENERAL: A 79-year-old -Latvian female, in no obvious distress. The patient is alert. She will follow basic 1 step commands. There is a definite [facility] [address] [place] [address] CONSULTATION Name: NELA MILLAN Room #: 364[facility].#: [id number] Admission: 10/14/19 Attend Phys: Curt Rinaldi MD Discharge: 10/22/19 Date of : 41 Report #: [id number] latency to her responses. VITAL SIGNS: Last recorded temperature 98.4, pulse 84, respirations 18, blood pressure 137/66. HEENT: Facies appeared to be symmetric. EXTREMITIES: She does have functional range of motion of the upper extremity. Strength is probably a grade 3+ to 4-/5. She has lower extremity strength, probably a grade 3/5-3+/5. She has decreased sitting balance, tends to lean to the left. She is max assist supine to sit. With time, her sitting balance can improve, although she will fatigue. ASSESSMENT: A 79-year-old -Latvian female with the following problem list: 1. Toxic metabolic encephalopathy. 2. Severe hypoglycemia, still having problems with decreased blood sugar. Note that Endocrinology has been asked to see about the likely be due to infection and decreased nutrition. 3. Severe diarrhea. She is on oral vancomycin. 4. Left pleural effusion, status post thoracentesis. 5. Pituitary insufficiency. 6. Adrenal insufficiency. 7. End-stage renal disease, on hemodialysis. 8. Medical complexity with generalized debilitation. PLAN: We are considering the patient for an acute in-hospital inpatient rehabilitation stay as she further medically stabilizes. We will be assessing her tolerance for therapies to see if she qualifies. We will be following along with you regarding her rehab therapy needs. <ELECTRONICALLY SIGNED> By: Bertin Shepard MD 10/29/19 [id number] [id number] Bertin Shepard MD /[facility]
== END 2019-10-22 20:10 | DRG 371 ==
LOC: ER 12:00 → 3W 14:34 → EROBS 14:34 → 3W 17:33
PROVIDERS: Emergency Medicine; Hospitalist; Internal Medicine; Internal Medicine Pulmonary Disease; ADMIT Family Medicine
PROC: 0W9B3ZZ Drainage of Left Pleural Cavity, Percutaneous Approach (ICD-10-PCS; principal; 2019-10-15)
PROC: 5A1D70Z Performance of Urinary Filtration, Intermittent, Less than 6 Hours Per Day (ICD-10-PCS; 2019-10-16)
PROC: 5A1D70Z Performance of Urinary Filtration, Intermittent, Less than 6 Hours Per Day (ICD-10-PCS; 2019-10-18)
PROC: 5A1D70Z Performance of Urinary Filtration, Intermittent, Less than 6 Hours Per Day (ICD-10-PCS; 2019-10-19)
PROC: 5A1D70Z Performance of Urinary Filtration, Intermittent, Less than 6 Hours Per Day (ICD-10-PCS; 2019-10-22)
DX: A04.72 Enterocolitis due to Clostridium difficile, not specified as recurrent (principal); E43 Unspecified severe protein-calorie malnutrition; N17.0 Acute kidney failure with tubular necrosis; N18.6 End stage renal disease; G92 Toxic encephalopathy; E27.40 Unspecified adrenocortical insufficiency; J91.8 Pleural effusion in other conditions classified elsewhere; E23.0 Hypopituitarism; Z94.0 Kidney transplant status; I12.0 Hypertensive chronic kidney disease with stage 5 chronic kidney disease or end stage renal disease; E11.649 Type 2 diabetes mellitus with hypoglycemia without coma; E78.5 Hyperlipidemia, unspecified; I25.10 Atherosclerotic heart disease of native coronary artery without angina pectoris; G89.29 Other chronic pain; M54.9 Dorsalgia, unspecified; Z96.641 Presence of right artificial hip joint; D64.9 Anemia, unspecified; E03.9 Hypothyroidism, unspecified; I25.2 Old myocardial infarction; Z88.8 Allergy status to other drugs, medicaments and biological substances; Z95.5 Presence of coronary angioplasty implant and graft; Z79.82 Long term (current) use of aspirin; Z79.899 Other long term (current) drug therapy; Z68.24 Body mass index [BMI] 24.0-24.9, adult; Z79.52 Long term (current) use of systemic steroids; Z99.2 Dependence on renal dialysis
CPT/HCPCS: 10779; 10879; 32100

== ENCOUNTER 2019-10-22 13:17 | Inpatient (IN) | payer OTHER ==
[~2019-10-22] VITALS: Ht 170.2 cm; Wt 70.3 kg
[~2019-10-22 13:17] MED LIST changes: +ACETAMINOPHEN500 MG PO; +CALCIUM ACETAT667 M2 PO; +CHILDREN'S ZYRT10 M1 PO; +CHOLESTYRAMINE L4 GM PO; +FIRVANQ50 MG/1 ML PO; +HYDROCORTISONE10 MG PO; +LEVO-T100 MCG PO; +LOPERAMIDE2 MG PO; +NORVASC5 MG PO; +PANTOPRAZOLE SO40 M1 PO; +ROBITUSSIN-COU237 ML PO
[2019-10-22 20:00] VITALS: BP 136/79
[2019-10-22 20:16] VITALS: BP 136/79
--- NOTE | 2019-10-23 04:26 | NUR ---
PT AND HER DAUGHTER ARRIVED ON UNIT ABOUT 1999. PT ASSESSMENT DONE AND VSS. MEDS GIVEN AND WELL TOLERATED. HOURLY ROUNDING. CALL LIGHT IN REACH. SLEEPING WELL. WILL CONTINUE TO MONITOR.
[2019-10-23 05:36] LABS: HEMATOCRIT 26.1 % (37.0-47.0); MCH 26.2 pg (26.0-34.0); MCHC 30.7 g/dL (28.0-37.0); MCV 85.2 fL (80.0-100.0); RBC 3.07 mil/uL (4.20-5.00); RDW 24.1 % (10.5-14.5); WBC 7.9 thou/uL (4.0-11.0)
[2019-10-23 05:46] LABS: CALCIUM 8.6 mg/dL (8.5-10.1); CREATININE 2.4 mg/dL (0.6-1.0); POTASSIUM 4.1 mmol/L (3.5-5.1)
[2019-10-23 07:35] VITALS: BP 132/75
--- NOTE | 2019-10-23 12:17 | NUR ---
Nutrition: RD received nutrition consult related to malnutrition. Physician diagnosed-will defer. PMH: ESRD on HD, CAD, ND. Stable weights in the 170s. Appetite has improved over admit, po intake 50-75% of meals. Variable supplement intake from 0-100%. Likes magic cup and glucerna. Does not want ensure or nepro. RD will offer glucerna BID and magic cup once/day. Wound care following for ecchymosis wound on sacrum which is listed as greatly improved and LE wounds without any open areas. BG levels are consistently running low, 66-86. Encourage adequate intake/supplements and snacks as needed. RD will allow mashed potatoes twice/week due to K+ WNL and suboptimal intake/per pt request. Consider low risk with interventions in place
--- NOTE | 2019-10-23 12:45 | NUR ---
WOUND CARE CONSULT; assessed wounds w/ catering staff member WILLIAM, photos taken, pt alert and cooperative, l malleolus wound healing, r foot ulcers 2nd and 3rd toes less crusted, +2 dp pulse present, feet warm to touch RECOMMENDATIONS; SILICONE BORDER DRSG TO L MALLEOLUS WOUND, CHANGE M/W/F AND PRN, PAINT ULCER R FOOT TOES 2ND AND 3RD W/ BETADINE DAILY. LOW AIR LOSS MATTRESS TO BED NUCLEAR CONTROL OPERATOR INFORMED
--- NOTE | 2019-10-23 12:51 | NUR ---
WOUND CARE CONSULT; ADDENDUM; SACRAL AREA INTACT, NO OPEN AREAS, DUE TO INCONT STOOL CONT W/ PROTECTIVE CREAM DAILY AND PRN, ACCOUNTING ASSOCIATE INFORMED
[2019-10-23 16:30] VITALS: BP 130/70
--- NOTE | 2019-10-23 16:59 | NUR ---
ASSUMED CARES AT 0700. PT AWAKE, ALERT AND ORIENTED*4. DENIES PAIN. VITALS REMAIN STABLE. AV FISTULA ON RIGHT UPPER ARM REMAINS INTACT, BRUIT AND THRILL PRESENT. WOUNDS ON SACRAL AREA AND LEFT LATERAL ANKLE HEALING, SITES CLEANED AND DRESSING CHANGED. PICTURES TAKEN. PT PARTICIPATED IN BED EXERCISES, DID NOT GETUP TODAY (DEPENDENT). BG 68 AT LUNCH, APPLE JUICE ADMINISTERED AND PT ENCOURAGED TO DRINK HER GLUCERNA. REPOSITIONED Q2H. Q1H VISUAL CHECKS. CALL LIGHT WITHIN REACH. FALL PRECAUTIONS IN PLACE
[2019-10-23 19:55] VITALS: BP 132/77
--- NOTE | 2019-10-24 01:37 | NUR ---
PT ALERT AND ORIENTED X 4, FORGETFUL. PT ON BEDREST. INCONT OF STOOL. HAS HAD ONE STOOL SO FAR TONIGHT. PT C/O PAIN IN HER LEFT FOOT. TYLENOL GIVEN WITH ADEQUATE PAIN RELIEF VERBALIZED. DAUGHTER HERE DURING THE NIGHT. BLOOD SUGAR 116 AT HS. BED ALARM ON FOR SAFETY. PT APPEARS TO BE SLEEPING ON HOURLY ROUNDS.
--- NOTE | 2019-10-24 08:06 | HC ---
[facility] [place] [address] CONSULTATION Name: NELA MILLAN Room #: 512-P [facility] IN M.R.#: [id number] Admission: 10/22/19 Attend Phys: Bertin Shepard MD Discharge: Date of : 41 Report #: [id number] THIS REPORT FOR: //name// CC: Bertin Rinaldi DATE OF SERVICE: 10/23/2019 ENDOCRINE CONSULTATION NOTE CONSULTING PHYSICIAN: Dr. Shepard. REASON FOR CONSULTATION: Adrenal insufficiency, hypothyroidism, and hypoglycemia. HISTORY OF PRESENT ILLNESS: This is a 79-year-old female patient who presented several days ago with the issue of unresponsiveness that was found in the context of severe hypoglycemia. Subsequently, the patient was admitted for further care and monitoring. The patient's background is negative for type 2 diabetes mellitus or the use of any hypoglycemic agents. The patient had denied having had similar occurrences in the past. However, she did allude to the fact that her appetite had been rather poor over the past few weeks, which was associated with weakness and a generalized decline in her wellbeing. The patient's background is also noted for pituitary tumor status post hypophysectomy in 2014, following which the patient developed the issues of adrenal insufficiency, and hypothyroidism. The patient has been on chronic treatment with prednisone 7.5 mg daily as well as levothyroxine 100 mcg daily. She affirms that she had been compliant with these medications and does not recall measure interruptions to her usual therapy. Throughout her hospital stay prior to her admission to the rehab unit, the patient stabilized gradually and towards the last 2 days of her hospital stay, there were no recordings of severe hypoglycemia. REVIEW OF SYSTEMS: CONSTITUTIONAL: Fatigue, tiredness, poor appetite, but not fever or chills. HEENT: Negative for sore throat, sinus pain, or ear drainage. PULMONARY: Occasional shortness of breath and cough and hemoptysis. CARDIAC: Occasional palpitations, lower extremity swelling, but not chest pain. GASTROINTESTINAL: Negative for abdominal pain, noted for occasional nausea, no vomiting. The patient has had issues with diarrhea and was diagnosed with C. diff. NEUROLOGY: Negative for loss of consciousness, seizure activity. PSYCHIATRIC: Depressed mood, but no hallucinations or delusions. Otherwise, review of systems is noncontributory other than those mentioned in [address] [address] CONSULTATION Name: NELA MILLAN Room #: [facility]-P [facility] IN [facility].#: [id number] Admission: 10/22/19 Attend Phys: Bertin Shepard MD Discharge: Date of : 41 Report #: [id number] HPI. PAST MEDICAL HISTORY: 1. Hypothyroidism. 2. Renal insufficiency. 3. Panhypopituitarism. 4. Pituitary tumor, status post resection in 2014. 5. Hypoglycemia. 6. End-stage renal disease, on hemodialysis. 7. Diarrhea due to Clostridium difficile. 8. GERD. 9. Seasonal allergies. 10. Hypertension. 11. Hyperlipidemia. CURRENT MEDICATIONS: Aspirin 81 mg daily, amlodipine 5 mg daily, hydrocortisone 20 mg q.a.m. and 10 mg q.p.m., loratadine 10 mg daily, multivitamins 1 capsule daily, pantoprazole 40 mg daily, carvedilol 6.25 mg b.i.d., levothyroxine 100 mcg daily, atorvastatin 10 mg at bedtime, loperamide 2 mg daily p.r.n., and Colace 100 mg b.i.d. p.r.n. ALLERGIES: HEPARIN AND ADHESIVE TAPE. FAMILY HISTORY: Noncontributory. SOCIAL HISTORY: The patient lives with her daughters and granddaughters. PHYSICAL EXAMINATION: GENERAL: Pleasant female patient who is not in apparent pain or distress. VITAL SIGNS: Blood pressure is 132/75 mmHg, heart rate is 77 beats per minute, respirations 16 per minute, temperature 36 degrees. CONSTITUTIONAL: The patient was lying in bed, appears comfortable, not in apparent distress. HEENT: Anicteric sclerae. Intact extraocular motions. NECK: Supple, without JVD, carotid bruits, and no thyromegaly. CHEST: Noted for moderate air entry bilaterally with scattered rales, rhonchi. HEART: Regular rate and rhythm without murmurs or gallops. ABDOMEN: Soft and lax, without guarding, tenderness, or organomegaly. She has active bowel sounds. EXTREMITIES: Lower extremity exam trace ankle edema, skin breaks, and ulcerations. NEUROLOGIC: Awake, alert and oriented to time, place and person. The remainder of her examination is nonfocal. PSYCH: Pleasant, interactive. Normal mood and affect. LABORATORY DATA: Blood glucose over the past 48 hours had run between [address] [address] CONSULTATION Name: NELA MILLAN Room #: 512-P [facility] IN M.R.#: [id number] Admission: 12/03/19 Attend Phys: Bertin Shepard MD Discharge: Date of : 41 Report #: [id number] mg/dL. Her lowest was a little bit over 2 days ago at 57 mg/dL. Otherwise, a recent creatinine was 2.4, glucose 85, AST 54, anion gap 5, BUN 17, total bilirubin 0.6, calcium 8.6, phosphorus 3.7, magnesium 1.8, alkaline phosphatase 258, and EGFR 24. White blood count 7.9, hemoglobin 8, hematocrit 26.1, platelets 214. TSH undetectable, but her free T4 was normal at 1.0. Hemoglobin A1c 4.2, insulin was 2.7, and C-peptide 3.4. ASSESSMENT AND PLAN: 1. Hypoglycemia. As noted above, the patient presented in the context of severe hypoglycemia in the absence of hypoglycemic agent intake. The patient has been investigated for hyperinsulinemia which she has ruled out for baseline based on her insulin peptide levels. I believe that this was most likely a multifactorial process whereby her end-stage renal disease as well as a probable steroid coverage deficiency contributed to this outlook. The patient was counseled about this at length and I was glad to see that she had virtually recovered from this issue over the past few days. A sandra change number operator the past few days had been switching the patient to coverage with hydrocortisone 20 mg q.a.m. and 10 mg q.p.m., which I believe might be a better fit as far as providing consistent glucocorticoid coverage, which in itself would go towards limiting the odds of hyperglycemia again in the future. Given this outlook, I do not particularly recommend further workup for the issue of hypoglycemia, but would certainly maintain blood glucose monitoring to ensure the patient's stability and to be able to intervene in a timely fashion should it occur again. 2. Hypothyroidism. This is central in nature. Central hypothyroidism, free T4 levels would be the sandra parameter to baby registry sales consultant the adequacy of levothyroxine coverage. In this respect, the patient's current levothyroxine dose seems to be appropriate. She is to continue with the same. 3. Adrenal insufficiency. As noted above, the patient is currently under coverage with hydrocortisone 20 mg in a.m. and 10 mg in p.m. seems to be clinically under adequate control with this regimen. She is to continue the same. 4. Hyperlipidemia. The patient is currently on atorvastatin therapy and tolerates it well. She is to continue with the same. 5. Hypertension. The patient is currently on treatment with carvedilol and amlodipine with a good blood pressure control. She is to continue with the same. I certainly appreciate this consultation by Dr. Shepard. <ELECTRONICALLY SIGNED> By: Marcelo Sharpe MD 10/24/19 [id number] Marcelo Sharpe MD /nt
[2019-10-24 09:30] VITALS: BP 133/74
[2019-10-24 11:50] VITALS: BP 174/86
--- NOTE | 2019-10-24 14:41 | NUR ---
ASSUMED CARES AT 0700. PT AWAKE, ALERT AND ORIENTED*4 BUT FORGETFUL. C/O LEFT LOWER EXTREMITY PAIN, TYLENOL ADMINISTERED. BP ELEVATED AFTER PHYSICAL THERAPY THIS AM, PT C/O CHEST PAIN. PHYSICIAN NOTIFIED, WILL CONTINUE TO MONITOR. RIGHT ARM FISTULA REMAINS INTACT. PT RECEIVING DIALYSIS SINCE 2PM. SKIN REMAINS DRY AND FLAKY, CREAM APPLIED AFTER BATH. PT UP WITH MAX ASSIST, W/C AND GB. Q1H VISUAL CHECKS. CALL LIGHT WITH REACH. FALL PRECAUTIONS IN PLACE
--- NOTE | 2019-10-24 14:50 | NUR ---
chart review. pt in bed receiving dialysis tx. pt open and close during visit. cm intro to dcp and team meeting. spoke with daughter florencio via phone call reported " have temp ramp into house, daughter live with her. goes to [facility], [address], uses [facility] [employer] for transportation to and from dialysis other then that she is home bound. has wheel chair and walker. pt needs assist with dressing. pt able to feed her self."/daughter. will cont following as needed for dc needs.
[2019-10-24 17:22] VITALS: BP 155/71
[2019-10-24 20:50] VITALS: BP 146/86
--- NOTE | 2019-10-25 01:36 | NUR ---
PT ALERT AND ORIENTED X 4. BLOOD SUGAR 76 AT HS. APPLE JUICE GIVEN. PT DENIES PAIN OR DISCOMFORT. DAUGHTER HERE DURING THE NIGHT. BED ALARM ON FOR SAFETY. PT APPEARS TO BE SLEEPING ON HOURLY ROUNDS.
--- NOTE | 2019-10-25 07:39 | NUR ---
PT C/O PAIN IN LEFT ANKLE. RATED 10/10. STATES TYLENOL GIVEN AT [address]P AT ALL. DR COLVIN NOTIFIED WITH ORDERS RECEIVED. REPORT GIVEN TO DAY NURSE
[2019-10-25 08:09] VITALS: BP 139/73
--- NOTE | 2019-10-25 11:38 | NUR ---
WOUND CARE F/U assessed wounds w/ community health nurse staff Jovita WILKINSON malleolus improving, less red, wound .3cml x.3cm w x.2cm depth, +1 pedal edema, DP pulse +2, alert and cooperative, states pain less this am, DR COLVIN ordered ms/silvadene to wound, right foot warm to touch, +2 DP pulse, 2nd and 3rd toes, less crusted, noted orders for xray l ankle today and lab work RECOMMENDATIONS per dr orders to use ms/silvadene to l ankle wound bed, cover w/ border foam drsg, cont betadine paint to right foot 2nd and 3rd toes, depending on lab xray results and cont pain may need further eval/test, mri? community health nurse staff aware
--- NOTE | 2019-10-25 13:44 | NUR ---
ASSUMED CARE AT 0700. PATIENT IS ALERT AND ORIENTED X4, BUT FORGETFUL. PATIENT VINCENT'S, LEAD SOFTWARE DEVELOPER ARE EQUAL. LUNGS ARE CLEAR. ABD IS SOFT WITH BSX4. PATIENT IS INCONTINENT OF BROWN LOOSE STOOL. PATIENT IS ON DIALYSIS AND HAS A RIGHT ARM FISTULA THAT HAS GOOD THRILL AND BRUIT. PATIENT IS UP IN W/C FOR MEALS. PATIENT HAD XRAY OF HER LEFT ANKLE AND FOOT THAT WAS NEGATIAVE FOR FX OR DISLOCATION. PATIENT IS MAX ASSIST OF 2 STAFF FROM BED TO W/C. FALL AND SAFETY PROTOCOLS IN PLACE. C/O PAIN IN HER LEFT ANKLE. DRESSING CHANGED BY WOUND CARE TEAM AND OINTMENT APPLIED. PATIENT MEDICATED WITH PRN PAIN MED. CONTINUES TO PROGRESS SLOWLY TOWARDS D/C GOALS. WILL CONTINUE TO MONITER.
[2019-10-25 20:00] VITALS: BP 130/80
--- NOTE | 2019-10-26 03:33 | NUR ---
assumed care at approx 1900 evening 10/25. pt lying in bed with head of bed elevated at change of shift. pt incontinent of bowel requiring assistance with changing and turning. daughter at bedside. pt in isolation for c-diff. pt took hs meds with water tolerating well and pain meds given as ordered. pt appears to be sleeping soundly with hourly rounding checks. bed alarm on and call ligt in reach. will continue to monitor.
[2019-10-26 10:28] VITALS: BP 128/64
--- NOTE | 2019-10-26 18:46 | NUR ---
PATIENT CONT ON DIALYSIS AT THIS TIME. SHE DID HAVE A PRN PAIN MED EARLIER AND IT IS EFFECTIVE SHE NOT COMPLAINING OF PAIN AT THIS TIME. PLEASANT WITH CARE.
[2019-10-26 21:48] VITALS: BP 112/64
--- NOTE | 2019-10-27 03:26 | NUR ---
assumed care at approx 1900 evening 10/26. pt lying in bed at change of shift finishing up with dialysis treatment. pt ate late dinner after dialysis with good appetite. daughter at bedside. pt took hs meds with water tolerating well. pt incontinent of bm and assisted with changing. pt remains in isolation as ordered. pt appears to be sleeping soundly with hourly rounding checks. bed alarm on and call light in reach. will continue to monitor.
[2019-10-27 07:20] VITALS: BP 133/71
--- NOTE | 2019-10-27 18:52 | NUR ---
PT ALERT AND ORIENTED TIMES FOUR. VSS, 94%RA. PT DENEIS PAIN/SOA. DRESSING TO LEFT ANKLE CHANGED. PT TOLERATES MEDS AND MEALS. PT DAUGHTER AT BEDSIDE THIS SHIFT. PT SLOWLY PROGRESSING TOWRADS POC GOALS.
[2019-10-27 19:18] VITALS: BP 113/69
--- NOTE | 2019-10-27 23:54 | NUR ---
PT ASSESSMENT DONE AND VSS. MEDS GIVEN AND WELL TOLERATED. FALL PRECAUTIONS IN PLACE. SLEEPING WELL. HOURLY ROUNDING. CALL LIGHT IN REACH. WILL CONTINUE TO MONITOR.
[2019-10-28 09:00] VITALS: BP 137/48
--- NOTE | 2019-10-28 10:28 | NUR ---
WOUND CARE FOLLOW UP; THE WOUND TO THE LEFT LATERAL MALLEOLOUS IS STABLE AT THIS TIME. THE RIGHT FOOT/TOES AREAS ARE NOT OPEN AT THIS TIME. THE FOOT IS COOL TO TOUCH. THE PATIENT DENIES PAIN AT THIS TIME. THE LEFT INNER THIGHT BRUISE IS BETTER TODAY AND THE SKIN IS CLEAN. DRY AND INTACT. RECOMMENDATIONS; CONTINUE CURRENT TREATMENT.
--- NOTE | 2019-10-28 17:38 | NUR ---
PT ALERT AND ORIENTED TIMES FOUR. VSS, 93%RA. DRESSING TO LEFT ANKLE CHANGED. PT DENEIS PAIN/SOA. PT WORKED WELL WITH PT/OT, UP SITTING IN THE CHAIR FOR SOME PART OF THE SHIFT. PT TOLERATES MEDS AND MEALS. PT SLOWLY PROGRESSING TOWRADS POC GOALS.
[2019-10-28 18:28] VITALS: BP 128/56
[2019-10-28 19:48] VITALS: BP 138/76
--- NOTE | 2019-10-29 02:11 | NUR ---
PT ALERT AND ORIENTED X 4. LEFT ANKLE DRESSING C/D/I. PT REFUSED SILVADINE CREAM TO ANKLE AT HS. PT DENIES PAIN OR DISCOMFORT. BED ALARM ON FOR SAFETY. PT TURNED Q2H. DAUGHTER HERE DURING THE NIGHT. PT APPEARS TO BE SLEEPING ON HOURLY ROUNDS.
[2019-10-29 07:59] VITALS: BP 135/85
--- NOTE | 2019-10-29 12:50 | NUR ---
team meeting, recommendation: home with diana lift vs snf if needed. re team with anticipation dc the week of the , outpt ar kuhn.
--- NOTE | 2019-10-29 16:07 | H ---
[facility] [place] [address] [address] HISTORY AND PHYSICAL Name: NELA MILLAN Room #: 512-P [facility] IN M.R.#: [id number] Admission: 10/22/19 Attend Phys: Bertin Shepard MD Discharge: Date of : 42 Report #: [id number] THIS REPORT FOR: //name// CC: Bertin Rinaldi DATE OF SERVICE: 10/22/2019 HISTORY AND PHYSICAL AND POST-ADMISSION PHYSICIAN EVALUATION HISTORY OF PRESENT ILLNESS: The patient is a 79-year-old -Dominican female who was originally admitted to [facility] on 10/14/2019 with acute mental status changes, noted to be unresponsive. She has chronic kidney disease, on hemodialysis and was having problems with severe diarrhea. She had a low temperature. Her blood glucose was only 10. She was noted to have severe hypoglycemia with multifactorial, toxic metabolic encephalopathy. She also had a left pleural effusion followed by Pulmonary Medicine and had thoracentesis. This was thought to be a transudative effusion. She has adrenal insufficiency and pituitary insufficiency. Severe diarrhea was noted to be consistent with C. diff. Her toxic metabolic encephalopathy is gradually improving. She was tolerating therapies better. She was felt to be ready and has now been admitted for acute in-hospital inpatient rehabilitation. PAST MEDICAL HISTORY: Includes end-stage renal disease, on hemodialysis, left kidney transplant in 2007. pituitary tumor, status post removal, noted to be benign, hyperlipidemia, coronary artery disease, [place] with cardiac stents x 2, prior right total hip replacement, GERD, anemia, and hypertension. MEDICATIONS: Please see the full medication listing. ALLERGIES: HEPARIN AND ADHESIVE. HABITS: No history of tobacco or alcohol abuse. FAMILY HISTORY: Noncontributory. SOCIAL HISTORY: Daughter lives with her and there is another daughter as well. They trade off in assisting her. They are noted to be basically with her at all times. She had been utilizing a wheelchair, especially in the last couple of months or so and they arranged for functional ramp basically with some boards over the steps. The family has been lifting her into the wheelchair and they use a mechanical lift apparently while she is being dialyzed. REVIEW OF SYSTEMS: No current complaints of chest pain, shortness of breath or abdominal discomfort. [address] [address] HISTORY AND PHYSICAL Name: NELA MILLAN Room #: 512-P [facility] IN ..#: [id number] Admission: 10/22/19 Attend Phys: Bertin Shepard MD Discharge: Date of : 41 Report #: [id number] PHYSICAL EXAMINATION: GENERAL: A 79-year-old -Dominican female in no obvious distress. VITAL SIGNS: Last recorded temperature 97.5, pulse 75, respirations 18, and blood pressure 136/79. HEENT: Facies appeared symmetric. CHEST: Sounded clear to auscultation. CARDIOVASCULAR: Regular rate and rhythm. ABDOMEN: Bowel sounds positive, nontender. GENITOURINARY AND RECTAL: Deferred. She is of rather slender build. NEUROLOGIC: She has functional range of motion of the upper extremities. Strength is only a grade 3 to 3+/5. Lower extremities, strength is probably grade 3/5. She has definite decreased sitting balance. She tends to fatigue quickly. She has needed max assist with basic transfer attempts. Max assist supine to sit. There is a definite delay in her processing with cognitive information. She can follow basic 1-step commands, however. ASSESSMENT: A 79-year-old -Dominican female with the following problem list: 1. Toxic metabolic encephalopathy appears to be gradually improving. 2. Initial severe hypoglycemia. 3. Severe diarrhea. She is Clostridium difficile positive. 4. Left pleural effusion, status post thoracentesis. 5. Pituitary insufficiency. 6. Adrenal insufficiency. 7. End-stage renal disease, on hemodialysis. 8. Medical complexity with generalized debilitation. PLAN: The patient has been admitted for acute in-hospital inpatient rehabilitation. From a postadmission physician evaluation perspective, there are no relevant changes since the preadmission screening. Please see the above review of prior and current medical and functional conditions and comorbidities. Please see the patient's previous and current functional status. As far as risk of complications, the patient has multiple medical comorbidities as noted above. Initial plan of care involves the interdisciplinary acute inpatient rehabilitation program. Measurable functional goals would be for the patient to become modified independent with transfers, mobility, ADLs, so she can hopefully return back to her prior living situation. Prognosis is reasonably good with the length of stay probably fairly long at least 2 weeks and likely 3 weeks with her lower functional level. Potential barriers would include her multiple medical issues and decreased functional status. The patient meets diagnostic criteria for an acute in-hospital inpatient rehabilitation stay. She meets the medical necessity criteria and we will have [address] [address] HISTORY AND PHYSICAL Name: NELA MILLAN Room #: 512-P [facility] IN M.R.#: [id number] Admission: 10/22/19 Attend Phys: Bertin Shepard MD Discharge: Date of : 41 Report #: [id number] the regulatory affairs consultant physicians continue to follow. She does have the tolerance for therapies and has appropriate discharge goals back to the home setting. <ELECTRONICALLY SIGNED> By: Bertin Shepard MD 10/29/19 1607 [id number] Bertin Shepard MD /nt
[2019-10-29 19:12] VITALS: BP 104/55
[2019-10-29 19:45] VITALS: BP 127/78
--- NOTE | 2019-10-29 19:53 | NUR ---
A/O, pleasant; dialysis done, no fluid taken off according to the dialysis nurse; during the dialysis, patient heart rate reached 125, the dialysis texted the doctor about it; The staff checked the pulse after dialysis, noticed that the patient had irregular heart beat. HR was bradycardia days ago. Patient showed the concern. Patient agreed to talk to the doctor tomorrow and the staff passed the HR concern to the night nurse.
--- NOTE | 2019-10-30 02:10 | NUR ---
PT ALERT AND ORIENTED X 4. PT C/O PAIN IN BOTH THIGHS. HYDROCODONE GIVEN AT HS AND PT SLEEPING UPON REASSESSMENT. RIGHT ARM FISTULA WITH BRUIT AND THRILL. LEFT ANKLE DRESSING C/D/I. PT REFUSED SILVADENE CREAM TO WOUND AT HS. BLOOD SUGAR 84 AT HS. DAUGHTER HERE DURING THE NIGHT. BED ALARM ON FOR SAFETY. PT APPEARS TO BE SLEEPING ON HOURLY ROUNDS.
[2019-10-30 08:00] VITALS: BP 120/74
--- NOTE | 2019-10-30 10:47 | NUR ---
WOUND CARE FOLLOW UP; THE LEFT MALLEOLOUS WOUND AND LEFT TOES ARE STABLE AT THIS TIME AND PAIN HAS DECREASED. THE LEFT THIGH BRUISE WAS NOT SEEN TODAY BUT THE PATIENT SAYS IT REMAINS TENDER. CONTINUE CURRENT TREATMENT.
--- NOTE | 2019-10-30 11:01 | NUR ---
PT A&OX4. SITTING IN W/C. UP WITH PT. R ARM FISTULA NOTED. PO PAIN MED GIVEN FOR THIGH PAIN. HR ELEVATED TODAY SEE FLOW. WILL CONT POC.
--- NOTE | 2019-10-30 14:35 | NUR ---
Patient participated in therapeutic group on 10/30/19 with Physical Therapy. Refer to documentation by PT.
[2019-10-30 17:10] VITALS: BP 110/66
--- NOTE | 2019-10-30 18:29 | NUR ---
PT ALERT AND ORIENTED TIMES FOUR. VSS. PT TOLERATES MEDS AND MEALS. PT WORKED WELL WITH PT/OT, UP SITTING IN THE CHAIR FOR SOME PART OF THE SHIFT. DRESSING TO LEFT ANKLE CHANGED. PT PROGRESING TOWRADS POC GOALS.
[2019-10-30 19:40] VITALS: BP 109/67
--- NOTE | 2019-10-31 04:20 | NUR ---
ASSUMED CARE AT APPROX 1900 EVENING 10/30. PT LYING IN BED AT CHANGE OF SHIFT RESTING. PT IN ISOLATION FOR C-DIFF. DAUGHTER AT BEDSIDE. PT TOOK HS MEDS WITH WATER TOLERAITNG WELL. PT INCONTINENT OF STOOL ASSISTED WITH CHANGING AND TURNING. PT APPEARS TO BE SLEEPING SOUNDLY WITH HOURLY ROUNDING CHECKS. BED ALARM ON AND CALL LIGHT IN REACH. WILL CONTINUE TO MONITOR.
--- NOTE | 2019-10-31 15:59 | NUR ---
cm left message with daughter florencio tinajero [phone] requested a call back rt dcp and see if now where they want to cont with home option vs snf. will cont following as needed for dc needs.
--- NOTE | 2019-10-31 17:25 | NUR ---
ASSUMED CARE OF PT AT APPROX 0700. PT IS ALERT AND ORIENTED. ASSESSMENT CHARTED. NAD NOTED THIS SHIFT. PAIN MEDICATION PROVIDED REQUESTED WITH PARTIAL RESOLUTION. PT TURNED TO MAINTAIN SKIN INTEGRITY WHILE IN BED. NO BM THIS SHIFT. PT IN DIALYSIS THIS AFTERNOON. HAS BEEN UPDATED ON POC WILL CONT. TO MONITOR.
--- NOTE | 2019-10-31 18:24 | NUR ---
RESUMED CARE OF PT AT 1745. PT COMPLETED DIALYSIS, PER DIALYSIS NURSE 1.5L REMOVED, BLOOD PRESSURE 123/66 AND HR 67. CARVEDILOL GIVEN PER ORDERS. PT PROVIDED WITH DINNER TRAY. FISTULA DRESSING C/D/I. NO CHANGES IN CONDITION REPORTED BY PREVIOUS NURSE. FALL PRECAUTIONS IN PLACE AND NURSING WILL CONTINUE TO MONITOR.
[2019-10-31 19:27] VITALS: BP 134/57
--- NOTE | 2019-11-01 03:53 | NUR ---
TURNED SIDE FOR COMFORT. BRINGING TO OUR ATTENTION A QUARTER SIZED AND SHAPED SUBDERMAL LUMP THAT BOTHERS HER WHEN SHE LIES ON IT, LOCATION RIGHT HIP NEAR END OF SCAR. SHE APPRECIATES HAVING NO BM OVERNIGHT, EXPLAINED YARI MAY BE HELPING THAT, TOOK IT MIXED WITH 60 CC WATER AND 30 CC APPLE JUICE AND THAT IT TASTED A LITTLE BETTER THAN USUAL. DAUGHTER STAYING OVERNIGHT. PLEASANT
--- NOTE | 2019-11-01 13:55 | PLAN ---
[facility] [place] [address] REHAB UNIT PLAN OF CARE Name: NELA MILLAN Room #: 512-P [facility] IN M.R.#: [id number] Admission: 10/22/19 Attend Phys: Bertin Shepard MD Discharge: Date of : 42 Report #: [id number] THIS REPORT FOR: //name// CC: Bertin Rinaldi DATE OF SERVICE: 10/25/2019 PROGRESS NOTE/OVERALL PLAN OF CARE SUBJECTIVE: The patient is seen back today in followup. She has had problems with left ankle and foot pain that has been going on for the last couple of months. She complained of some throbbing discomfort and it kept her up last night. On examination, she does have the wound over the lateral ankle with wound care involved that is prior. There is no edema. Her foot appears warm. It was difficult to assess her pulse, appeared to have some capillary refill, although it was somewhat difficult to assess. No actual swelling over the ankle, had reasonable range of motion. Functionally, she has been working in therapies and has been at a low level with dependent sit to stand. She is max assist of 2, bed to wheelchair. We are utilizing a lifting device to try to get her up to do assisted lifting for gait training. In occupational therapy, she is dependent for lower body dressing, dependent for upper body dressing. In speech therapy, she has [id number] memory problems. ASSESSMENT: 1. Left ankle and foot pain. Apparently, this has been going on for a couple of months. I have ordered a left ankle and foot x-ray as well as checking a uric acid. Agree with wound care involvement. 2. Toxic metabolic encephalopathy, which appears to be improving. 3. Initial severe hypoglycemia. 4. Clostridium difficile positive. 5. Left pleural effusion, status post thoracentesis. 6. Pituitary insufficiency. 7. Adrenal insufficiency. 8. End-stage renal disease, on hemodialysis. 9. Medical complexity with generalized debilitation. PLAN: The overall plan of care is based on the preadmission screen, post-admission physician evaluation and information garnered from therapy assessments. 1. Estimated length of stay is going to be at least 2 weeks. She is at a lower level. 2. Medical prognosis is reasonably good. 3. Anticipated interventions includes the interdisciplinary acute inpatient [address] [address] REHAB UNIT PLAN OF CARE Name: NELA MILLAN Jovita Room #: 512-P [facility]#: [id number] Admission: 10/22/19 Attend Phys: Bertin Shepard MD Discharge: Date of : 42 Report #: [id number] rehabilitation program. 4. Anticipated functional outcomes would be for the patient to improve as far as her basic bed mobility and transfers to hopefully more of a mod assist her at least to a level that her family can care for her back in the home setting. Also to improve as far as her overall cognition. 5. Discharge destination would again be back home with family that essentially providing 24-hour care for her. 6. Expected therapy by discipline includes PT and OT and speech 1 hour per day each five days a week throughout the duration of the acute inpatient rehabilitation stay. <ELECTRONICALLY SIGNED> By: Bertin Shepard MD 11/01/19 1355 [id number] Bertin Shepard MD /PMT
[2019-11-01 20:10] VITALS: BP 132/55
--- NOTE | 2019-11-02 01:26 | NUR ---
ASSUMED CARE AT APPROX 1900 EVENING 11/01. PT LYING IN BED WITH HEAD OF BED ELEVATED AT CHANGE OF SHIFT. PT IN ISOLATION ORDERED FOR C-DIFF. PT ALERT AND ORIENTED, APPROPRIATE AND COOPERATIVE. DAUGHTER AT BEDSIDE. PT TOOK HS MEDS WITH WATER TOLERATING WELL. PT INCONTINENT OF BM TONIGHT AND ASSISTED WITH CHANGING AND TURNING. BED ALARM ON AND CALL LIGHT IN REACH. WILL CONTINUE TO MONITOR.
[2019-11-02 10:01] VITALS: BP 133/63
[2019-11-02 18:21] VITALS: BP 130/60
--- NOTE | 2019-11-02 18:23 | NUR ---
ASSUMED CARE AT 0700, PATIENT ALERT AND ORIENTED X 4, NO ACUTE DISTRESS DURING SHIFT. CONDITION STABLE, VS STABLE, PATIENT C/0 RLE PAIN AND RECEIVED PRN NORCO AND TYLENOL WITH PARTIAL RELIEF. SPECIAL CONTACT PRECAUTIONS CONTINUED. NO IV, AV FISTULA TO VANNESSA, DRESSING CLEAN, DRY AND INTACT. PATIENT WAS DIALIZED TODAY,1.5 L REMOVED, TOLERATED WELL. BM X 1 TODAY, SOFT AND BROWN, NO FOUL ODOR NOTED. PELVIC X-RAY TO R HIP ORDERED FOR POSS CYST. BG'S AC AND HS. BED IN LOWEST POSITION, CALL LIGHT WITHIN REACH, WILL CONTINUE TO MONITOR PER POC.
[2019-11-02 19:30] VITALS: BP 119/48
--- NOTE | 2019-11-03 05:53 | NUR ---
2 SMALL LOOSE INCONTINENT BM THIS SHIFT. CLEANED AND MOISTURE BARRIER APPLIED TO EXTENDED PERIRECTAL AREA. TURNED SIDE TO SIDE AFTER EACH BM. LOW AIR LOSS MATTRESS THERAPY CONTINUES. PLAN TO TAKE PATIENT TO RADIOLOGY TO EVALUATE RIGHT HIP SUBDERMAL BUMP DELAYED BY PATIENT REQUEST, SHE PREFERED THAT IT WAIT UNTIL TODAY. DAUGHTER STAYING OVERNIGHT.
[2019-11-03 07:45] VITALS: BP 120/53
[2019-11-03 11:07] LABS: HEMOGLOBIN 6.8 gm/dL (12.0-15.0); MCH 25.4 pg (26.0-34.0); MCHC 29.6 g/dL (28.0-37.0); MCV 85.9 fL (80.0-100.0); RBC 2.68 mil/uL (4.20-5.00); RDW 23.6 % (10.5-14.5); WBC 11.1 thou/uL (4.0-11.0)
[2019-11-03 11:19] LABS: CALCIUM 8.5 mg/dL (8.5-10.1); CREATININE 2.4 mg/dL (0.6-1.0); POTASSIUM 4.5 mmol/L (3.5-5.1)
--- NOTE | 2019-11-03 17:27 | NUR ---
ASSUMED CARE OF PT AT 0715. PT IS A&OX4 AND VITAL SIGNS ARE STABLE. PT REPORTS PAIN IN LEFT ANKLE AND LOWER BACK, MANAGED WITH PO MEDICATIONS. DIALYSIS FISTULA TO THE VANNESSA WNL. PT TRANSPORTED TO RADIOLOGY THIS SHIFT FOR X-RAY OF COCCYX. LABS COMPETED AND PROVIDER NOTIFIED OF WBC 11.1 AND HGB 6.8. ORDERS AT THIS TIME FOR TYPE AND SCREEN. PT IS ASYMPTOMATIC OF INFECTION OR BLOOD LOSS OR ANEMIA. DRESSING TO LLE CHANGED PER ORDERS. ACCU CHECK ACHS, WNL. SPECIAL CONTACT ISOLATION FOR C-DIFF, NO STOOLS REPORTED THIS SHIFT. DAUGHTER IS AT THE BEDSIDE. CALLS APPROPRIATELY FOR ASSISTANCE. FALL PRECAUTIONS IN PLACE AND NURSING WILL CONTINUE TO MONITOR.
[2019-11-03 20:20] VITALS: BP 132/58
--- NOTE | 2019-11-03 21:51 | HC ---
[facility] [place] [address] CONSULTATION Name: NELA MILLAN Room #: 512-P ADM IN M.R.#: [id number] Admission: 10/22/19 Attend Phys: Bertin Shepard MD Discharge: Date of : 42 Report #: [id number] THIS REPORT FOR: //name// CC: Bertin Rinaldi DATE OF SERVICE: 11/02/2019 BEHAVIORAL STATUS EXAM ATTENDING PHYSICIAN: Bertin Shepard M.D. COMPRESSOR ASSEMBLER: Curt Woodard, PhD CLINICAL PRESENTATION: The patient is a 79-year-old -[place] female admitted to the rehabilitation unit at [facility] for comprehensive inpatient rehabilitation program to improve functional mobility, activities of daily living and self-care and mental status secondary to deficits from a toxic metabolic encephalopathy. She was initially admitted to the hospital with confusion and disorientation and noted to be unresponsive. Her appetite had been very poor. Her assessment on admission to the rehab unit is toxic metabolic encephalopathy, initially severe hypoglycemia, severe diarrhea (C. difficile positive), left pleural effusion, status post thoracentesis, pituitary insufficiency, adrenal insufficiency, end-stage renal disease, on hemodialysis and medical complexity with generalized debilitation. A complete description of her medical condition and history along with medications can be found in her medical record. Neuropsychological consultation was requested to provide assistance in the assessment of cognitive and emotional status and to provide recommendations and services. Prior to this most recent admission, she was living with the assistance of her daughters in their home. She is a high school graduate with about 2.5 years of college with employment primarily for the [employer]. Her about 9 months ago. She is described as having had a decrease in appetite for the last 9-12 months, possibly associated with depression regarding his loss. Driving was discontinued about 15 years ago. Her family was helping with medication, finances and nutrition. They also provided assistance with bathing. TECHNIQUES UTILIZED: Clinical interview, review of medical records, staff consultation and behavioral observation, mini mental status exam 2 standard version and clock drawing and family interview - daughter. EXAMINATION FINDINGS: The patient was alert and cooperative with the assessment. She appears to have had a loss of consciousness surrounding her [facility] [address] [place] [address] CONSULTATION Name: NELA MILLAN Room #: 512-P [facility] IN .R.#: [id number] Admission: 10/22/19 Attend Phys: Bertin Shepard MD Discharge: Date of : 42 Report #: [id number] initial hospitalization and was unaware of behavioral issues regarding appetite and periodic disorientation. Her symptoms currently are reported to include continued decrease in appetite and short term/immediate recall. She does not report difficulty with sleep, depression or anxiety. Memory and word finding deficits are noted by her daughter. She indicated that her family do not see her as depressed or anxious. Her orientation and cognition is described as much improved compared to her initial hospitalization. Her performance on the MMSE 2 brief version is within normal limits with a raw score of 14 of 16. She was 3/3 for initial registration, 4/5 for orientation to time, 5/[address] and 2/3 for immediate recall of 3 items after a brief time delay and distraction. Performance on the MMSE 2 standard version was in the low average range with a raw score of 24 of 30, T score 39, percentile rank of 14. She was 2/5 for serial sevens, 2/2 for naming, 1/1 for repetition, 3/3 for auditory comprehension. She could read and follow single command and write a sentence. She had some difficulty with copying a simple geometric design. Clock drawings within normal limits with some mild degree of difficulty in visual spatial construction. The patient is alert and oriented. Mild deficits are suggested in sustained concentration and visual spatial construction. The patient may also be presenting with mild depression, which has had an effect on her appetite and initiative in self care prior to this deterioration in her condition. DIAGNOSTIC IMPRESSION: Mild neurocognitive disorder, due to medical etiology -- without behavior disorder. Unspecified depressive disorder. RECOMMENDATIONS: The patient may benefit from the use of an antidepressant to assist with mood, behavior and appetite. Indicated is continued assistance in the management of medication, finances and nutrition. Her family is very supportive and available to provide assistance as needed. Patient should be encouraged to take more initiative and assertiveness in her self care and use of compensatory strategies for areas of decreased functioning. [address] [address] CONSULTATION Name: NELA MILLAN Room #: 512-P [facility] IN M.R.#: [id number] Admission: 10/22/19 Attend Phys: Bertin Shepard MD Discharge: Date of : 42 Report #: [id number] Thank you very much for allowing me to provide the consultation on this patient. <ELECTRONICALLY SIGNED> By: Curt Woodard, PhD 11/03/19 [id number] Curt Woodard, PhD /nt
--- NOTE | 2019-11-04 00:56 | NUR ---
PT ASSESSMENT COMPLETED AND VSS. MEDS GIVEN ORDERED AND WELL TOLERATED. FALL PRECAUTIONS IN PLACE. SUPPORTIVE DAUGHTER AT BEDSIDE. SPECIAL CONTACT ISOLATION FOLLOWED. ASST WITH REPOSITION FOR COMFORT. NO BM SO FAR DURING SHIFT. DIALYSIS ACCESS WNL. SLEEPING WELL. BG WNL. WILL CONTINUE TO MONITOR FREQUENTLY. DSG ON LEFT HEEL DRY AND INTACT.
[2019-11-04 08:00] VITALS: BP 130/65
--- NOTE | 2019-11-04 13:27 | NUR ---
CM LEFT MESSAGE WITH DAUGHTER NORBERTO SCHAEFER [phone], WILL CONT FOLLOWING NEEDED FOR DC NEEDS HH WITH [facility] LIFT POSSIBLE VS SNF
[2019-11-04 19:52] VITALS: BP 130/69
--- NOTE | 2019-11-04 20:49 | NUR ---
ASSUMED CARE OF PT AT 0715. PT IS A&OX4 AND VITAL SIGNS ARE STABLE. PT REPORTS PAIN IN LEFT LATERAL ANKLE AND LOW BACK. DRESSING CHANGED AND OINTMENT APPLIED PER ORDERS TO ANKLE AND LIDOCAINE PATCH APPLIED TO LOWER BACK PER ORDERS. PAIN MANAGED WITH OINTMENT AND PO MEDICAITONS. PT PARTICIPATED IN SCHEDULED THERAPIES. PER NEPHROLOGY PT WILL HAVE DIALYSIS TOMORROW AND PLANS FOR TRANSFUSION WITH DIALYSIS FOR LOW HGB. PT ASYMPTOMATIC THIS SHIFT. DR. COLVIN NOTIFIED WHEN ON UNIT ABOUT WEEKEND LAB RESULTS, NO ORDERS FROM DR. COLVIN AT THIS TIME. FISTULA TO VANNESSA WNL. HR REGULAR AND LUNG SOUNDS CLEAR. DAUGHTER AT THE BEDSIDE. CALLS APPROPRIATELY FOR ASSISTANCE AND FALL PRECATUIONS IN PLACE, NURSING WILL CONTINUE TO MONITOR.
--- NOTE | 2019-11-05 04:44 | NUR ---
PATIENT TURNED SIDE TO SIDE SHE ALLOWS FOR COMFORT. RESTING WELL TONIGHT WITH NO BM, QUESTRAN GIVEN AFTER BEING MIXED WITH 1 OUNCE APPLE JUICE AND ALITTLE MORE THAN 1 OUNCE OF WATER. DAUGHTER STAYING OVERNIGHT. PLAN FOR A UNIT OF BLOOD GIVEN TODAY WITH DIALYSIS. PLEASANT
--- NOTE | 2019-11-05 13:36 | NUR ---
team meeting, recommendation: will needs 24hr assistance , cont [facility] mon, monday. will require diana lift at home for transfers vs snf if pt agrees to go. dc ( pt, ot, nursing, st and sw).
--- NOTE | 2019-11-05 16:01 | NUR ---
DISCHARGE PLAN. ANTICIPATED DISCHARGE PLANNED FOR 11/11. POST ACUTE RECOMMENDED AT DISCHARGE. PATIENT DISCHARGE PLANNED TO [facility]. UPDATED CLINICAL INFORMATION FAXED TO RICARDO VALDOVINOS. CALL PLACED TO [facility] TO NOTIFY. FOLLOWING.
--- NOTE | 2019-11-05 16:25 | NUR ---
DISCHARGE PLANNING. ANTICIPATED DISCHARGE PLANNED FOR 11/11 PER UNIT CM. DISCHARGE PLAN IS TO HOME WITH SPECIALIZED HOME CARE SERVICES. CLINICAL INFORMATION FAXED TO [facility] FOR PATIENTS OUTPATIENT DIALYSIS SERVICES. CALL PLACED TO KYRA PITTS FOR [facility], TO NOTIFY. FOLLOWING.
[2019-11-05 19:55] VITALS: BP 131/58
--- NOTE | 2019-11-05 20:33 | NUR ---
ASSUMED CARE OF PT AT APPROX 0700. PT ALERT AND ORIENTED. ASSESSMENT CHARTED. WORKING WITH THERAPIES THIS AM THEN BACK TO ROOM FOR HD. PAIN TREATED PRN. BLOOD TRANSFUED BY MULE SPINNER. THIS RN AND OTHER RN ON UNIT DID VERIFY BLOOD BUT MULE SPINNER DID ADMINISTER IN DIALYSIS PER RENAL DR ORDER. NAD NOTED DURING OR AFTER HD AND TRANFUSTION. PT TOLERATED WELL. MAKING SLOW PROGRESS TOWARDS POC GOALS.
--- NOTE | 2019-11-06 04:47 | NUR ---
TURNED SIDE TO SIDE PATIENT ALLOWS. PLAN FOR PAIN MED AT 0600 IN ORDER TO EASE THERAPY THIS MORNING. DAUGHTER STAYING OVERNIGHT. APPLE JUICE AND PEANUT BUTTER FOR BLOOD SUGAR OF 68 LAST EVENING. MOISTURE BARRIER LOTION TO LEGS AND SACRUM
[2019-11-06 09:00] VITALS: BP 140/63
--- NOTE | 2019-11-06 11:36 | NUR ---
WOUND CARE FOLLOW UP; THE LEFT LAT ANKLE WOUND IS IMPROVED SINCE LAST ASSESSMENT. LESS DRAINAGE TODAY. NO S/S OF INFECTION. RECOMMENDTIONS; CONTINUE CURRENT WOUND CARE ORDERS RN PRESENT
--- NOTE | 2019-11-06 12:28 | NUR ---
cm visited with daughter florencio via phone call, information passed on rt dcp and team yesterday. daughter voiced that they still not sure if they should go to short team rehab and then home. mom only will consider facility that use [facility]. mom really wants to come home and if possible we will, ok for diana in the home if that's what she needs. we all will discuss and let you know by tomorrow"/florencio. education that if going to go skilled need to send referral soon since anticipate dc on . per [facility] shruthi will need to have dialysis on the prior to dc and then with holiday next day would be on 11/14/19 per morgan with [facility]. will cont following as needed for dc needs. information passed on to team and shelby visited with pt, she stated " well what have we decided"/shruthi. education that daughters want to visit with her 1st before making a decision. " ok thanks"/pt.
--- NOTE | 2019-11-06 14:08 | NUR ---
Patient participated in community reintegration on 11/06/19 with Physical Therapy. Refer to documentation by PT.
--- NOTE | 2019-11-06 15:50 | NUR ---
Patient participated in community reintegration on 11/06/19 with PHYSICAL THERAPY. Refer to documentation by PT. ESTHER
[2019-11-06 19:10] VITALS: BP 135/70
--- NOTE | 2019-11-06 19:40 | NUR ---
ASSUMED CARE OF PT AT 0715. PT IS A&OX4 AND VITAL SIGNS ARE STABLE. PT REPORTS PAIN IN LOWER BACK AND RIGHT HIP, MANAGED WTIH PO MEDICATIONS AND LIDOCAINE PATCH, PARTICIPATED IN SCHEDULED THERAPIES. RIGHT UPPER ARM DIALYSIS FISTULA WNL. DRESSING TO LEFT LATERAL ANKLE WOUND CHANGED PER ORDERS. SPECIAL CONTACT ISOLATION MAINTAINED. ACCU CHECKS ACHS, MANAGED WITH DIET. CALLS FOR ASSISTANCE APPROPRIATELY. FALL PRECAUTIONS IN PLACE AND NURSING WILL CONTINUE TO MONITOR.
--- NOTE | 2019-11-06 23:25 | NUR ---
PT ASSESSMENT DONE AND VSS. MEDS GIVEN AND WELL TOLERATED. FALL PRECAUTIONS IN PLACE. SLEEPING WELL. DAUGHTER AT BEDSIDE. HOURLY ROUNDING. CALL LIGHT IN REACH. WILL CONTINUE TO MONITOR.
[2019-11-07 09:00] VITALS: BP 128/67
--- NOTE | 2019-11-07 09:55 | NUR ---
cm notified by daughter megan and pt that need to go to snf and then back home, needing more rehab. cm notified 5n team. referral to be sent to [facility], pt will need to continue oupt dialysis at [facility], she will still need to have dialysis here on prior to dc then start on at [facility].
--- NOTE | 2019-11-07 20:44 | NUR ---
ASSUMED CARE OF PT AT 0715. PT IS A&OX4 AND VITAL SIGNS ARE STABLE. PT REPORTS PAIN IN LOWER BACK AND LLE, PAIN MANAGED WITH PO MEDICATIONS, LIDOCAINE PATCH AND REST. VANNESSA DIALYSIS AV FISTULA WITH POSITIVE BRUIT AND THRILL. ACCU CHECKS ACHS AND MANAGED WITH DIET. BLE +1 PITTING EDEMA, RELIEVED WITH ELEVATION. DIALYSIS THIS SHIFT. PER DIALYSIS NURSE 1.2 L REMOVED FINAL B/P 128/62 AND HR 69. SPECIAL CONTACT ISOLATION FOR C-DIFF MAINTAINED. PT REPORTS FEELING THE BEST SHE HAS IN DAY, IS PLEASANT, AND INTERACTIVE. CALLS APPROPRIATELY FOR STAFF. FALL PRECAUTIONS IN PLACE AND NURSING WILL CONTINUE TO MONITOR.
[2019-11-07 21:11] VITALS: BP 110/50
--- NOTE | 2019-11-08 02:28 | NUR ---
PT ASSESSMENT COMPLETED AND VSS. MEDS GIVEN ORDERED AND WELL TOLERATED. FALL PRECAUTIONS IN PLACE. SPECIAL CONTACT ISOLATION FOLLOWED. SUPPORTIVE DAUGHTER AT BEDSIDE. SLEEPING WELL. WILL CONTINUE TO MONITOR FREQUENTLY. ASST WITH REPOSITION.
[2019-11-08 09:25] VITALS: BP 110/60
--- NOTE | 2019-11-08 11:53 | NUR ---
ASSUMED CARE OF PT AT 0715. REPORTS SLEPT GOOD LAST NIGHT.PT IS A&OX4 AND VITAL SIGNS ARE STABLE. PT REPORTS PAIN IN LOWER BACK AND LLE, PAIN MANAGED WITH PO MEDICATIONS, LIDOCAINE PATCH AND REST. VANNESSA DIALYSIS AV FISTULA WITH POSITIVE BRUIT AND THRILL. RATED PAIN 7/10 DOWN TO 3/10. PT UP WITH OT/PT AND ST. HAD BM THIS AM. REQUESTS TO BE RESTING IN BED NOW. SHE IS TIRED. ACCU CHECKS ACHS AND MANAGED WITH DIET. BLE +1 PITTING EDEMA, RELIEVED WITH ELEVATION. SPECIAL CONTACT ISOLATION FOR C-DIFF MAINTAINED. PT IS PLEASANT, AND INTERACTIVE. CALLS APPROPRIATELY FOR STAFF. FALL PRECAUTIONS IN PLACE AND NURSING WILL CONTINUE TO MONITOR.
--- NOTE | 2019-11-08 12:39 | NUR ---
team meeting, recommendation: snf acceptance for short term rehab.
[2019-11-08 20:21] VITALS: BP 121/56
--- NOTE | 2019-11-09 00:30 | NUR ---
PT ASSESSMENT COMPLETED AND VSS. MEDS GIVEN ORDERED AND WELL TOLERATED. FALL PRECAUTIONS IN PLACE. SUPPORTIVE DAUGHTER AT BEDSIDE. ASST WITH REPOSITION FOR COMFORT. DSG ON L ANKLE CHANGED. PRN PAIN MEDICATION WORKING WELL. WILL CONTINUE TO MONITOR FREQUENTLY. DIALYSIS ACCESS WNL.
[2019-11-09 07:45] VITALS: BP 118/52
--- NOTE | 2019-11-09 12:04 | NUR ---
ASSUMED CARE OF PT AT 0715. REPORTS SLEPT GOOD LAST NIGHT.PT IS A&OX4 AND VITAL SIGNS ARE STABLE. B/P HAS BEEN STABLE ON LOW SIDE. NO NEED OF [facility]VASC. NOTIFIED DR. COLVIN WHEN HE MADE ROUND THIS AM. PT ON LEFT HEEL WOUND HEALED NO NEED FOR SILVADENE CREAM NOTIFIED DOCTOR AND OBTAINED ORDER TO D/C THESE. DR COLVIN ALSO WORKED ON DISCHARGE MEDS SO PT CAN BE D/C ON MONDAY. WILL GIVE REPORT TO ON COMING NURSE TO CONTINUE TO MONITOR. PT REPORTS PAIN IN LOWER BACK AND LLE, PAIN MANAGED WITH PO MEDICATIONS, LIDOCAINE PATCH AND REST. VANNESSA DIALYSIS AV FISTULA WITH POSITIVE BRUIT AND THRILL. RATED PAIN 7/10 DOWN TO 3/10. REASSESSMENT PER CHART. TURN Q2HR WHILE IN BED. PT REFUSES TURN SOME TIME. CONTINUE TO BE ON LOW AIR LOSS MATRESS. DRESSING CHANGE ON LEFT ANKLE. IT ALMOST HEALED. ACCU CHECKS ACHS AND MANAGED WITH DIET. BS 57, APPLE JUICE GIVEN. PT IS EATING LUNCH NOW AND WILL RECHECK BS AGAIN. PT WILL HAVE DIALYSIS THIS AFTERNOON. BLE +1 PITTING EDEMA, RELIEVED WITH ELEVATION. SPECIAL CONTACT ISOLATION FOR C-DIFF MAINTAINED. PT IS PLEASANT, AND INTERACTIVE. CALLS APPROPRIATELY FOR STAFF. FALL PRECAUTIONS IN PLACE AND NURSING WILL CONTINUE TO MONITOR.
[2019-11-09 17:19] VITALS: BP 109/58
[2019-11-09 18:54] LABS: HEMOGLOBIN 6.7 gm/dL (12.0-15.0); RBC 2.49 mil/uL (4.20-5.00)
[2019-11-09 18:56] LABS: ABSOLUTE NEUTROPHILS 10.7 thou/uL (1.4-8.2); BASOPHILS 0.6 % (0.0-2.0); EOSINOPHILS 0.4 % (0.0-3.0); LYMPHOCYTES 9.6 % (24.0-44.0); MCH 26.8 pg (26.0-34.0); MCHC 30.4 g/dL (28.0-37.0); MCV 88.2 fL (80.0-100.0); MONOCYTES 2.7 % (1.0-8.0); PLATELET COUNT 156 thou/uL (150-400); POLYS 86.7 % (36.0-66.0); RDW 22.5 % (10.5-14.5); WBC 12.3 thou/uL (4.0-11.0)
[2019-11-09 19:04] LABS: ALBUMIN 2.7 g/dL (3.4-5.0); CALCIUM 8.3 mg/dL (8.5-10.1); CREATININE 1.3 mg/dL (0.6-1.0); TOTAL BILIRUBIN 0.6 mg/dL (<0.1-1.0); TOTAL PROTEIN 5.3 g/dL (6.4-8.2)
[2019-11-09 19:20] LABS: TEARDROPS FEW
[2019-11-09 19:21] LABS: HYPOCHROMASIA 1+; POIKILOCYTOSIS 1+
[2019-11-09 19:25] VITALS: BP 124/50
--- NOTE | 2019-11-10 03:54 | NUR ---
PATIENT DECLINING MOST OFFERS TO TURN OR TO OFFLOAD HEELS. LOW AIR LOSS MATTRESS AND PUMP, MOISTURE BARRIER TO BILATERAL SHINS AND PAINFUL AREA LEFT INNER THIGH. HS SNACK AND SIPS OF APPLE JUICE ENCOURAGED FOR BLOOD SUGAR BETWEEN 80 AND 100, AND RECENT HISTORY OF GOING LOWER. PLEASANT, DAUGHTER STAYING OVERNIGHT.
[2019-11-10 08:00] VITALS: BP 141/58
[2019-11-10] MEDS ORDERED: HYDROCODON-ACE1 EAC7 PO (09:05)
--- NOTE | 2019-11-10 16:06 | NUR ---
PT ALERT AND ORIENTED TIMES FOUR. VSS, PT C/O PAIN PRN PAIN MEDIACTIONS CONTROLLING PAIN WELL. PT TOLERATES MEDS AND MEALS. PT PROGRESSING TOWRADS POC GOALS. PT DAUGHTER AT BEDSIDE.
[2019-11-10 17:37] VITALS: BP 135/64
[2019-11-10 19:45] VITALS: BP 126/61
--- NOTE | 2019-11-11 03:17 | NUR ---
TURNED TO SIDE, DECLINES TO BE TURNED EVERY 2 HOURS IN ORDER TO SLEEP AT NIGHT, LOW AIR LOSS BED THERAPY WITH AIR PUMP. DAUGHTER STAYING OVERNIGHT, PLAN TO GO HOME TODAY.
[2019-11-11 08:00] VITALS: BP 164/69
--- NOTE | 2019-11-11 10:55 | NUR ---
cm notified by bedside nurse that dc on home for dialysis tomorrow in am then dc to skilled rehab. pt to dc to [facility].
[2019-11-11 15:00] VITALS: BP 142/78
[2019-11-11 19:30] VITALS: BP 137/65
--- NOTE | 2019-11-11 19:52 | NUR ---
Assumed pt care this am, pt is a ma assits of 2 to 3. Pain managed with medication, partial relief noted. Dialysis scheduled rubi in the am since plan is for pt to be dc rubi, informed dialysis nurse. Pt has a large bm today on the commode. VS stable, POC followed, endorsed to the night urse.
--- NOTE | 2019-11-12 01:54 | NUR ---
PT CARE ASSUMED AT ABOUT 1915 .PT IS A/O X4.PT COMPLAIN OF PAIN AND PT MGT WITH HYDROCODONE WITH PARTIAL RELIEF.PT IS TO DOO DIALYSIS TOMORROW AND MALLORY IS TO D/C TO [facility] AFTER DIALTSIS IN THE MORNING.DAUGHTER SPENT NIGHT WITH PT.PT HAS AIRLOSS MATTRESS WITH PUMP.WILL CONTINUE TO MONITOR POC
--- NOTE | 2019-11-12 07:05 | NUR ---
pt will get dialysis today prior to dc to [facility] rehab. bedside nurse to call report [phone], pt can go by wheel chair van. 4s us is making chart copy. pt next dialysis tx is at [facility] 11/14/19 at 1100
[2019-11-12 08:00] VITALS: BP 154/70
[2019-11-12 11:35] VITALS: BP 134/56
--- NOTE | 2019-11-12 12:20 | NUR ---
PT WILL BE DISCHARGE TO [facility] AROUND 2PM. CALLED AND GAVE REPORT TO ANA BATRES. DISCHARGE FOLDER DONE. DISCHARGE SCRIPTS IS IN THE FOLDER. WILL SEND WITH PT WITH TRANSPORTATION. SHIFT NOTE: ASSUMED CARE OF PT AT 0715. REPORTS SLEPT GOOD LAST NIGHT.PT IS A&OX4 AND VITAL SIGNS ARE STABLE. PT ON LEFT HEEL WOUND HEALED. LACERATION/ SHEAR ON BUTTOCK. CONTINUE TO BE TURN Q2HRS WHILE IN BED. LOW AIR LOSS MATTRESS IS IN PLACED. ZGUARD PASTE APPLIED, ENCOURAGED PT TO CONTINUE TO TURN Q2HR IN BED. EDUCATION GIVEN. PT REPORTS PAIN IN LOWER BACK AND LLE, VOLATAREN GEL APPLIED. PAIN MANAGED WITH PO MEDICATIONS, LIDOCAINE PATCH AND REST. VANNESSA DIALYSIS AV FISTULA WITH POSITIVE BRUIT AND THRILL. ACCU CHECKS ACHS AND MANAGED WITH DIET. PT HAD 1.5L REMOVED FROM DIALYSIS THIS MORNING SPECIAL CONTACT ISOLATION FOR C-DIFF MAINTAINED. PT IS PLEASANT, AND INTERACTIVE. CALLS APPROPRIATELY FOR STAFF. FALL PRECAUTIONS IN PLACE AND NURSING WILL CONTINUE TO MONITOR. PT IS EATING LUNCH. WILL CONTINUE TO MONITOR.
== END 2019-11-12 14:41 | DRG 91 ==
PROVIDERS: Family Medicine; Internal Medicine; Nurse Practitioner Family; ADMIT Physical Medicine & Rehabilitation
PROC: 5A1D70Z Performance of Urinary Filtration, Intermittent, Less than 6 Hours Per Day (ICD-10-PCS; principal; 2019-11-12)
DX: G92 Toxic encephalopathy (principal); N18.6 End stage renal disease; I12.0 Hypertensive chronic kidney disease with stage 5 chronic kidney disease or end stage renal disease; E27.40 Unspecified adrenocortical insufficiency; J90 Pleural effusion, not elsewhere classified; E23.0 Hypopituitarism; A04.72 Enterocolitis due to Clostridium difficile, not specified as recurrent; Z94.0 Kidney transplant status; E03.9 Hypothyroidism, unspecified; E16.2 Hypoglycemia, unspecified; R53.81 Other malaise; K21.9 Gastro-esophageal reflux disease without esophagitis; E78.5 Hyperlipidemia, unspecified; I25.10 Atherosclerotic heart disease of native coronary artery without angina pectoris; Z96.641 Presence of right artificial hip joint; F32.9 Major depressive disorder, single episode, unspecified; G31.84 Mild cognitive impairment of uncertain or unknown etiology; S70.12XA Contusion of left thigh, initial encounter; Y92.230 Patient room in hospital as the place of occurrence of the external cause; Y33.XXXA Other specified events, undetermined intent, initial encounter; D63.8 Anemia in other chronic diseases classified elsewhere; M25.512 Pain in left shoulder; Z99.2 Dependence on renal dialysis; Z88.8 Allergy status to other drugs, medicaments and biological substances; Z91.041 Radiographic dye allergy status; I25.2 Old myocardial infarction; Z95.5 Presence of coronary angioplasty implant and graft; Z79.899 Other long term (current) drug therapy; Z79.82 Long term (current) use of aspirin; Z91.048 Other nonmedicinal substance allergy status; Y93.89 Activity, other specified; Y99.8 Other external cause status
CPT/HCPCS: 10112; 32100

== ENCOUNTER 2020-02-10 15:20 | Inpatient (IN) | payer OTHER ==
[~2020-02-10] VITALS: Ht 157.5 cm; Wt 70.3 kg
[2020-02-10] VITALS (14 sets, daily range): BP systolic 140–189; BP diastolic 66–89
[~2020-02-10 15:20] MED LIST changes: +HYDROCODON-ACE1 EAC7 PO
[2020-02-10] MEDS ORDERED: ASA81BEC PO (15:40)
[2020-02-10] MEDS ORDERED: NEPHRO-VITE TA0.8 MG PO (15:41)
[2020-02-10 15:42] LABS: HEMATOCRIT 33.6 % (37.0-47.0); HEMOGLOBIN 10.2 gm/dL (12.0-15.0); MCHC 30.4 g/dL (28.0-37.0); MCV 85.6 fL (80.0-100.0); PLATELET COUNT 187 thou/uL (150-400); RBC 3.92 mil/uL (4.20-5.00); RDW 24.5 % (10.5-14.5); WBC 6.8 thou/uL (4.0-11.0)
[2020-02-10] MEDS ORDERED: MIRALAX119 GM PO (15:43)
[2020-02-10] MEDS ORDERED: NEPRO CARB STE237 ML PO (15:44)
[2020-02-10] MEDS ORDERED: ZOFRAN4 MG PO (15:45)
[2020-02-10] MEDS ORDERED: PHOSLO667 MG PO ×2 (15:45→19:34)
[2020-02-10] MEDS ORDERED: NUTRITIONAL DR420 GM PO (15:45)
[2020-02-10 15:46] LABS: CALCIUM 9.3 mg/dL (8.5-10.1); CREATININE 9.6 mg/dL (0.6-1.0)
[2020-02-10 15:50] LABS: POTASSIUM 7.4 mmol/L (3.5-5.1)
[2020-02-10 16:04] LABS: ABSOLUTE NEUTROPHILS 4.4 thou/uL (1.4-8.2); NUCLEATED RBCS 2 /100WBC
[2020-02-10 16:05] LABS: POLYCHROMASIA OCCASIONAL; SCHISTOCYTES OCCASIONAL
[2020-02-10 16:06] LABS: ANISOCYTOSIS 3+
--- NOTE | 2020-02-10 16:14 | EKG ---
[facility] [place] [address] ELECTROCARDIOGRAM REPORT Name: NELA MILLAN Room #: [facility]..#: [id number] Admission: Attend Phys: Discharge: Date of : 42 Report #: [id number] THIS REPORT FOR: cc: Curt Rinaldi MD, Neal A. MD Couchonnal, Luis F. MD ~ THIS REPORT FOR: //name// [facility] ED Test Date: 2020-02-10 Test Time: 15:37:52 Pat Name: NELA MILLAN Department: Room: Gender: F Training And Development Manager: RENE : 1940 Requested By: Yung Alatorre Order Number: [id number] MD: Anderson Ghotra Measurements Intervals Claridge Rate: 65 P: SC: QRS: 0 QRSD: 103 T: 71 QT: 470 QTc: 489 Interpretive Statements Sinus rhythm. Probable left ventricular hypertrophy Borderline T abnormalities, anterior leads Borderline prolonged QT interval Compared to ECG 10/18/2019 07:34:46 Electronically Signed On 02-10-2020 16:13:27 CDT by Anderson Ghotra [email or web address] <ELECTRONICALLY SIGNED> By: Anderson Ghotra MD 02/10/20 1613 1537 [id number] Anderson Ghotra MD /EPI
--- NOTE | 2020-02-10 17:12 | NUR ---
DAUGHTER'S NAME IS NELA WELL, PHONE NUMBER IS [phone]
--- NOTE | 2020-02-10 18:56 | NUR ---
PATIENT ADMITTED TO ICU AT 1800 DROWSY AND NOT ABLE TO PROVIDE ANY HISTORY. HTN AND NEEDING EMERGENCY DIALYSIS. DIALYSIS PERSONNEL AT THE BEDSIDE AND STARTING PATIENT ON DIALYSIS RIGHT NOW.
[2020-02-10] MEDS ORDERED: NEPHRO-VITE RX1 TA1 PO (19:33)
--- NOTE | 2020-02-10 19:41 | NUR ---
SPOKE WITH DR. HERNANDEZ ABOUT MEDICATION RECONCILLIATION, PATIENT WILL RESTART ALL HOME MEDICATION WITH THE EXCEPTION OF ANY DIABETIC MEDICATIONS.
--- NOTE | 2020-02-10 22:59 | NUR ---
DIALYSIS COMPLETED, POST DIALYSIS WEIGHT SIGNIFICANTLY LOWER THAN ADMITTED WEIGHT. PATIENT CURRENT WEIGHT IS 69.3 KG.
[2020-02-11] VITALS (41 sets, daily range): BP systolic 112–184; BP diastolic 62–98
[2020-02-11 05:32] LABS: HEMOGLOBIN 11.4 gm/dL (12.0-15.0)
[2020-02-11 05:34] LABS: HEMATOCRIT 37.8 % (37.0-47.0); MCH 26.2 pg (26.0-34.0); MCHC 30.1 g/dL (28.0-37.0); PLATELET COUNT 148 thou/uL (150-400); RBC 4.34 mil/uL (4.20-5.00); RDW 24.6 % (10.5-14.5); WBC 5.7 thou/uL (4.0-11.0)
[2020-02-11 05:46] LABS: CALCIUM 9.1 mg/dL (8.5-10.1)
[2020-02-11 05:53] LABS: CREATININE 5.5 mg/dL (0.6-1.0); POTASSIUM 5.5 mmol/L (3.5-5.1)
--- NOTE | 2020-02-11 07:25 | H ---
[facility] [place] [address] HISTORY AND PHYSICAL Name: NELA MILLAN Room #: 242-P ADM IN M.R.#: [id number] Admission: 02/10/20 Attend Phys: Amaury Beatty MD Discharge: Date of : 41 Report #: [id number] THIS REPORT FOR: cc: Amaury Beatty MD,Amaury Beatty,Amaury VILLATORO ~ CC: Bianca Beatty DATE OF SERVICE: 02/10/2020 HISTORY OF PRESENT ILLNESS: The patient is a 79-year-old female who was brought to the Emergency Room with hypoglycemic episode. The patient apparently was found to have very low blood sugar in the senior living facility. She was given glucagon and sent to the Emergency Room for evaluation. The patient on arrival to the hospital was more alert and she was given glucose D50 and she came back to her baseline. The patient is known to have a history of end-stage renal disease, on hemodialysis. The patient missed her dialysis on because she was not feeling good and she was planned to have dialysis on Monday, but unfortunately the patient missed her dialysis on Monday too and when arrived to the Emergency Room, her potassium was 7. It is worth to mention that the patient's potassium on Monday was 6.8. The patient is not complaining of any tachyarrhythmia or any irregular heartbeats. She is not having any chest pain or shortness of breath. The patient is not having any headache. She is not having any fever or chills. PAST MEDICAL HISTORY: Significant for adrenal insufficiency, hyperlipidemia, coronary artery disease, myocardial infarction, hypertension, anemia. The patient had a history of renal transplant. The patient's left kidney transplant was carried on in 2007, but unfortunately the kidney was rejected and the rejected kidney was removed in 02/2009. The patient had a history of pituitary tumor, status post removal and it was benign. The patient had 2 stents placed in 2004, she had a history of , chronic back pain due to spinal stenosis, right total hip replacement in 06/2018, gastroesophageal reflux disease. The patient had a history of cataract surgery. The patient had a previous history of diabetes mellitus and CVA more than 10 years ago and recent toxic metabolic encephalopathy. MEDICATIONS: The patient's medications include hydrocodone/acetaminophen one tablet every 6 hours as needed, lovastatin 20 mg daily, aspirin 81 mg daily, Nephro-Remy 0.8 mg tablet, 1 tablet daily; carvedilol 6.25 mg 2 times a day, acetaminophen 500 mg 4 times a day as needed, loperamide 2 mg 4 times a day as needed, levothyroxine 100 mcg daily, cetirizine 10 mg daily, cholestyramine 4 grams 2 times a day, pantoprazole 40 mg daily, hydrocortisone 20 mg every morning and 10 mg every evening, MiraLax 17 grams daily, Nepro Carb 237 mL every day, PhosLo 667 mg 3 times a day with food, Zofran 4 mg every 4 hours as needed, [address] [address] HISTORY AND PHYSICAL Name: NELA MILLAN Room #: 242-P [facility] IN .R.#: [id number] Admission: 02/10/20 Attend Phys: Amaury Beatty MD Discharge: Date of : 41 Report #: [id number] protein supplement. ALLERGIES: ADHESIVE TAPES AND HEPARIN. SOCIAL HISTORY: The patient is living at the senior living facility. No recent history of smoking, alcohol use or drug use. FAMILY HISTORY: Noncontributory. REVIEW OF SYSTEMS: Negative besides what was mentioned above. PHYSICAL EXAMINATION: VITAL SIGNS: On arrival to the hospital, the patient's temperature is 98.6, pulse 70, respirations 11, blood pressure 186/79. Last blood pressure is 189/87. Oxygen saturation on arrival to the hospital was 87%, but it went up to 97%. LABORATORY DATA: The patient's glucose on arrival to the hospital was 49. Basic metabolic panel showed sodium of 141, potassium 7.4, chloride 102, bicarbonate 29, BUN 130, creatinine 9.6, glucose 47. The patient's repeated glucose is 170. The patient's chest x-ray showed [id number] left pleural effusion, mostly dependent, but extending to the apex, similar, but marginally improved since 10/14/2019, left basilar atelectasis and possible superimposed consolidation, mild bilateral perihilar lung consolidative infiltration, small right pleural effusion. CBC showed a white count of 6.8, hemoglobin 10.2, hematocrit 33.6, platelet count 187, neutrophils are 64%. A 12-lead EKG showed sinus rhythm, left ventricular hypertrophy, borderline T abnormalities in inferior leads, borderline prolonged QT intervals. CT of the head showed no CT evidence of acute intracranial abnormalities, age-related atrophy and moderate chronic microscopic ischemia. Repeated glucose is 157 and last glucose is 103. ASSESSMENT AND PLAN: 1. Altered mental status. 2. Hypoglycemia. 3. End-stage renal disease, on hemodialysis. 4 Hyperkalemia. 5. Coronary artery disease with stent placement. 6. Bilateral pleural effusion with more intense pleural effusion on the left side. [facility] [address] [place] [address] HISTORY AND PHYSICAL Name: NELA MILLAN Room #: 242-P [facility] IN [facility]#: [id number] Admission: 02/10/20 Attend Phys: Amaury Beatty MD Discharge: Date of : 41 Report #: [id number] The patient was admitted to the hospital with the above-mentioned diagnoses. I am not sure about the cause of the patient's hypoglycemia, especially the patient did not have any diabetic medications on board. I will go ahead and do blood cultures x 2. I will repeat the patient's chest x-ray after her dialysis. The patient to have a stat hemodialysis done and actually when I came to see the patient in the ICU now, the patient is getting her hemodialysis. The patient to start physical therapy and occupational therapy. I will start the patient on heparin for DVT prophylaxis. We will repeat the patient's chest x-ray and blood work tomorrow morning. The patient to start her prednisone. The patient to start rest of her mediations. <ELECTRONICALLY SIGNED> By: Amaury Beatty MD 02/11/20 0725 [id number] 31 Amaury Beatty MD /nt
--- NOTE | 2020-02-11 07:55 | NUR ---
ASSUMED CARE OF PATIENT AT 1900, PATIENT COMPLETED DIALYSIS OVER NIGHT 2 LITERS TAKEN OFF. SINUS RHYTHM ON AUTO MOTOR MECHANIC. BLOOD SUGAR CLOSELY MONITOR. SPOKE WITH DR. HERNANDEZ AND DR. MÁRQUEZ ABOUT BLOOD SUGAR CONTROL. NEW ORDERS NOTED. CLOTHING CUTTER CONSULTED, SPOKE WITH ANSWERING SERVICE. PATIENT RESTED WELL THROUGHOUT THE NIGHT. NO SIGN OF ACUTE DISTRESS NOTED AT THIS TIME. PATIENT PROGRESSING TOWARDS GOALS, WILL CONTINUE TO MONITOR.
--- NOTE | 2020-02-11 08:18 | NUR ---
Assumed care at 0700. PT is alert and oriented to self and place only. RN assessed PT's blood glucose at 0803 and it was 51. Per protocol RN administered 15gm of glucose gel and 4oz of apple juice at 0812. PT tolerated it fairly, grimacing while taking the glucose gel. RN will continue to monitor.
--- NOTE | 2020-02-11 08:21 | EKG ---
[facility] [place] [address] ELECTROCARDIOGRAM REPORT Name: NELA MILLAN Room #: 242-P ADM IN M.R.#: [id number] Admission: 02/10/20 Attend Phys: Amaury Beatty MD Discharge: Date of : 41 Report #: [id number] THIS REPORT FOR: cc: Amaury Beatty MD, Ammar MD Lundgren,Milad Tellez MD [facility] ~ THIS REPORT FOR: //name// [facility] ED Test Date: 2020-02-10 Test Time: 15:48:06 Pat Name: NELA MILLAN Department: Room: 242 P Gender: F Cinder Block Mason: [facility] : 1940 Requested By: Yung Alatorre Order Number: [id number] MD: Milad Cr Measurements Intervals Solen Rate: 67 P: KS: QRS: 12 QRSD: 110 T: 128 QT: 457 QTc: 483 Interpretive Statements Sinus rhythm Nonspecific ST and T wave abnormality Compared to ECG 02/10/2020 15:37:52 No significant change was found Electronically Signed On 02-11-2020 8:20:15 CDT by Milad Cr [email or web address] <ELECTRONICALLY SIGNED> By: Milad Cr MD, [facility] 02/11/20 0820 1548 1548 Milad Cr MD, [facility] /EPI
[2020-02-11 08:23] LABS: ABSOLUTE NEUTROPHILS 4.8 thou/uL (1.4-8.2)
[2020-02-11 08:24] LABS: ANISOCYTOSIS 3+; POLYCHROMASIA SLIGHT
--- NOTE | 2020-02-11 09:34 | NUR ---
chart review. spoke with vocational childcare teacher daniela with [facility] where pt is a residence. pt been to 5n acute rehab in past, had skilled stay at [facility] where she ended up staying ltc. [facility], which last couple of dialysis days pt has refused to go stating " don't feel well. she is non-compliant with her treatments here. she uses wheel chair and is unable to stand to transfer so use a diana lift for transfer for her."/kgw vocational childcare teacher. cm left message for daughter erickson roberts, requested call back. will cont following as needed for dc needs. will send updates to [facility] when avaible.
--- NOTE | 2020-02-11 12:37 | NUR ---
CALL MADE BY THIS O.T. TO PATIENT'S LTC FACILITY. PATIENT TOTAL CARE FOR ADLS, USES [facility]IFT FOR TRANSFERS AT BASELINE. ONLY PARTICIPATION IS MINIMAL FEEDING. RN REPORTS PATIENT ABLE TO FEED SELF SOMEWHAT THIS A.M. APPEARS AT FUNCTIONAL BASELINE AND IS NOT APPROPRIATE FOR SKILLED OT INTERVENTIONS. THANK YOU.
[2020-02-12] VITALS (16 sets, daily range): BP systolic 118–179; BP diastolic 48–78
--- NOTE | 2020-02-12 01:46 | NUR ---
PT WATCHING TV. STATES SHE FEELS BETTER AFTER DIALYSIS. NO RESP DISTRESS. BS WNL. PROGRESSING TOWARD GOALS. CONT PLAN OF CARE. REPORT GIVEN TO COCO REVELES
--- NOTE | 2020-02-12 05:15 | NUR ---
PATIENT IS PROGRESSING SLOWLY IN HER CARE PLAN. VITAL SIGNS STABLE WITH PATIENT HAVING NO COMPLAINTS OF PAIN OR NAUSEA. PATIENT STILL PLEASANTLY CONFUSED, BUT HAS SHOWN IMPROVEMENT WITH MENTATION FROM PREVIOUS SHIFTS. CONTINUE PLAN OF CARE.
[2020-02-12 05:36] LABS: HEMATOCRIT 32.8 % (37.0-47.0); HEMOGLOBIN 9.9 gm/dL (12.0-15.0); MCH 25.8 pg (26.0-34.0); MCHC 30.3 g/dL (28.0-37.0); PLATELET COUNT 137 thou/uL (150-400); RBC 3.85 mil/uL (4.20-5.00); RDW 23.9 % (10.5-14.5); WBC 6.1 thou/uL (4.0-11.0)
[2020-02-12 05:37] LABS: CALCIUM 8.7 mg/dL (8.5-10.1); POTASSIUM 4.6 mmol/L (3.5-5.1)
[2020-02-12 07:33] LABS: ABSOLUTE NEUTROPHILS 5.5 thou/uL (1.4-8.2); ATYPICAL LYMPHS 1 %
[2020-02-12 07:34] LABS: ANISOCYTOSIS 1+; BURR CELLS OCCASIONAL; OVALOCYTES FEW; POIKILOCYTOSIS 1+; TEARDROPS OCCASIONAL
--- NOTE | 2020-02-12 08:00 | NUR ---
DR. HERNANDEZ HERE. REPORTED GENERAL UPDATE AND PT HTN AT TIMES. TRANSFER ORDERS GIVEN.
--- NOTE | 2020-02-12 12:53 | HC ---
[facility] [place] [address] CONSULTATION Name: NELA MILLAN Room #: 242-P [facility] IN M.R.#: [id number] Admission: 02/10/20 Attend Phys: Amaury Beatty MD Discharge: Date of : 41 Report #: [id number] THIS REPORT FOR: cc: Amaury Beatty MD,Marcelo Gonzalez MD, MD ~ CC: Bianca Beatty DATE OF SERVICE: 02/11/2020 ENDOCRINE CONSULTATION NOTE CONSULTING PHYSICIAN: Dr. Amaury Beatty. REASON FOR CONSULTATION: Adrenal insufficiency, hypoglycemia, hypothyroidism. 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 The patient presented to the ER yesterday with complaints of altered mental status. This was noted over the 24 hours preceding her presentation and she was transferred from her halfway facility at [facility]. The patient seems to have missed her 2 last dialysis appointments. On arrival, the patient was found to have severe hyperglycemia and was resuscitated with intramuscular glucagon. On arrival, the patient was admitted to the ICU for further care and monitoring and has already received 1 hemodialysis therapy. She required multiple resuscitation efforts for intractable hypoglycemia. This has been persistent. The patient overall notes that she is not quite sure about the events surrounding her presentation and appears to have been somewhat confused at that time. However, she does not currently have active issues of abdominal pain, nausea, vomiting or other major difficulties. Again, the patient has had adrenal insufficiency since her pituitary resection surgery a few years ago and is maintained on hydrocortisone 20 mg in a.m. and 10 mg in p.m. The patient is known to have hypothyroidism and is maintained on levothyroxine 100 mcg daily. [facility] [address] [place] [address] CONSULTATION Name: NELA MILLAN Room #: [address] [place] [address] [place] ..#: [id number] Admission: 02/10/20 Attend Phys: Amaury Beatty MD Discharge: Date of : 41 Report #: [id number] REVIEW OF SYSTEMS: CONSTITUTIONAL: Fatigue, tiredness, but not fever or chills or body weight changes. HEENT: Negative for sore throat, sinus pain, ear drainage. PULMONARY: Occasional shortness of breath and cough without hemoptysis. CARDIAC: Negative for chest pain, palpitations, syncope or presyncope. GASTROINTESTINAL: Occasional abdominal discomfort and distention, nausea, but no vomiting. NEUROLOGY: Negative for loss of consciousness, tremors, seizure activity or severe frequent headaches. UROLOGY: Negative for dysuria, hematuria. She has end-stage renal disease, on hemodialysis. Otherwise, review of systems noncontributory other than those mentioned in HPI. PAST MEDICAL HISTORY: 1. Panhypopituitarism. 2. Hypothyroidism. 3. Adrenal insufficiency. 4. Hypertension. 5. End-stage renal disease, on hemodialysis 3 times a week. 6. Hypertension. 7. Hyperlipidemia. 8. Coronary artery disease, status post ME with cardiac stent placement in 2004. 9. Chronic back pain. 10. Gastroesophageal reflux disease. 11. Anemia. 12. Osteoarthritis. 13. History of toxic metabolic encephalopathy. 14. Past history of bouts of hypoglycemia. PAST SURGICAL HISTORY: 1. Right upper extremity AV fistula. 2. Left kidney transplant, status post rejection. 3. Pituitary tumor resection. 4. . 5. Right hip surgery 2019. OUTPATIENT MEDICATIONS: Tylenol q. 6 hours p.r.n. pain, loperamide 2 mg p.o. q.i.d. p.r.n. diarrhea, levothyroxine 100 mcg daily, cetirizine daily, lovastatin 20 mg at bedtime, enteric coated aspirin 81 mg daily, Nephro-Remy tablet 0.8 mg daily, MiraLax daily, Nepro Card Steady, PhosLo 667 mg p.o. t.i.d., Zofran p.r.n., Coreg 6.25 mg b.i.d. ALLERGIES: She is allergic to HEPARIN [place] [address] CONSULTATION Name: NELA MILLAN Room #: 242-P [facility] IN M.R.#: [id number] Admission: 02/10/20 Attend Phys: Amaury Beatty MD Discharge: Date of : 41 Report #: [id number] FAMILY HISTORY: Noncontributory. SOCIAL HISTORY: She resides at a halfway facility at [facility]. Denies use of tobacco, alcohol or illicit drugs. PHYSICAL EXAMINATION: GENERAL: Pleasant -Bolivian female patient who is not in apparent pain or distress. VITAL SIGNS: Blood pressure 166/73 mmHg, heart rate is 76 beats per minute, respirations 15 per minute, temperature of 36.4 degrees. PSYCH: The patient is lying in bed comfortably, not in pain or distress. HEENT: Anicteric sclerae. Intact extraocular motions. NECK: Supple, without JVD, carotid bruits or lymphadenopathy. I do not appreciate thyromegaly. CHEST: Noted for moderate entry bilaterally with scattered rales and rhonchi. HEART: Regular rate and rhythm without murmurs or gallops. ABDOMEN: Soft, lax. No guarding. Active bowel sounds. EXTREMITIES: Lower extremity exam, trace ankle edema bilaterally. No skin breaks or ulcerations. NEUROLOGIC: Somnolent, appears lethargic, but arousable, answers my questions appropriately largely nonfocal. PSYCHIATRIC: Pleasant, interactive. Normal mood and affect. LABORATORY DATA: Blood glucose on arrival was 49 and when upon resuscitation 270, then got as low as 34 mg/dL and earlier this morning 51 and 53 mg/dL. Her most recent before this dictation is 95 mg/dL. Otherwise, potassium 4.7, chloride 99, CO2 of 29, anion gap 12, BUN 56, creatinine 5.5, glucose 75. Lipase 207, AST 16, total bilirubin 0.6, calcium 9.1, phosphorus 3.7, magnesium 1.8, uric acid 2.5, alkaline phosphatase 93, ALT 19. Lactic acid 1.8. Total CPK 35. BNP 17,515. Free T4 in 10/2019 was 1.0. INR 1.2. White blood count 5.7, hemoglobin 11.4, hematocrit 37.8, platelets 148. In 10/2019, insulin panels were conducted including insulin and C-peptide both were normal at 2.7 and 3.4 respectively. Prolactin in 12/2014 was at 183.4. ASSESSMENT AND PLAN: 1. Adrenal insufficiency. The patient is known to have adrenal insufficiency. She is maintained on a stable regimen of hydrocortisone 20 mg q.a.m. and 10 mg q.p.m., I do have reason to believe that she might have been in adrenal crisis over the past 2 days a manifestation of which is intractable, recurrent, severe hypoglycemia. That said, I would like to cover the patient with a stress dose hydrocortisone at 80 mg IV q. 8 hours and maintain this for at least 24 hours while we assess her clinical outlook on this recent state of approach. Once she is stable, she can be tapered down to her usual maintenance regimen again. 2. Hypoglycemia. This has been a recurring issue for the patient and she has been worked up for hyperinsulinemia about 3 months ago and proved to not have this issue. I believe that this has been a manifestation of adrenal [facility] [address] [place] [address] CONSULTATION Name: NELA MILLAN Room #: [address] [place] [address] [place] ..#: [id number] Admission: 02/10/20 Attend Phys: Amaury Beatty MD Discharge: Date of : 41 Report #: [id number] insufficiency, that is sometimes not adequately covered. As noted above, I will cover the patient with stress dose hydrocortisone and maintain monitoring and management of hypoglycemia as per the [facility] protocol. It appears that the patient has been stabilizing with her most recent blood glucose value at 95 mg/dL. 3. Hypothyroidism. The patient has central hypothyroidism and is maintained on a levothyroxine regimen of 100 mcg daily. I would like to obtain a free T4 level to assess the adequacy of this dose and adjust it as necessary. She does appear to be clinically euthyroid. 4. End-stage renal disease. The patient requires hemodialysis 3 times a week. It appears that she has missed 2 treatments this past week. Dr. Howard is following and she has already had one hemodialysis session conducted yesterday and is about to get another one later today. 5. Hyperlipidemia. The patient is on atorvastatin therapy and tolerates it well, she is to continue with the same. I have reviewed the patient's clinical care notes, laboratory data and other pertinent medical information past and present for over 35 minutes. I certainly appreciate this consultation by Dr. Frazier. <ELECTRONICALLY SIGNED> By: Marcelo Sharpe MD 02/12/20 1253 1148 1237 Marcelo Sharpe MD /nt
--- NOTE | 2020-02-12 13:00 | NUR ---
TRANSFER PT TO FLOOR VIA BED. 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
--- NOTE | 2020-02-12 17:49 | NUR ---
ASSUMED CARE OF PT APPROX 1300. PT A&OX2-3, VSS, DENIES PAIN. IV RIGHT EJ REMAINS PATIENT AND SALINE LOCKED. BLOOD SUGAR STABLE, NO SIGNS OF DISTRESS. WILL CONTINUE TO MONITOR.
--- NOTE | 2020-02-13 05:09 | NUR ---
ASSUMED PT CARE AT 1900. EJ IV ACCESS WAS LEAKING WHEN FLUSHED, UNABLE TO GIVEN EVENING AND MORNING DOSE OF STEROIDS. PT HAS A LIMB ALERT BAND ON BOTH ARMS THEREFORE I WAS UNABLE TO START A NEW IV - WILL NOTIFY IV TEAM. BS STABLE. PT REQUESTING A SANDWICH THIS EVENING. REFUSED MORNING VITALS AND SCDS OVERNIGHT. SLEEPING COMFORTABLY DURING SHIFT, WILL CONTINUE TO MONITOR.
[2020-02-13 05:15] LABS: HEMATOCRIT 32.3 % (37.0-47.0); HEMOGLOBIN 9.8 gm/dL (12.0-15.0); MCHC 30.3 g/dL (28.0-37.0); MCV 85.7 fL (80.0-100.0); PLATELET COUNT 139 thou/uL (150-400); RBC 3.77 mil/uL (4.20-5.00)
[2020-02-13 05:33] LABS: CALCIUM 8.8 mg/dL (8.5-10.1); POTASSIUM 4.9 mmol/L (3.5-5.1)
[2020-02-13 05:34] LABS: CREATININE 5.2 mg/dL (0.6-1.0)
[2020-02-13 06:59] LABS: ABSOLUTE NEUTROPHILS 6.7 thou/uL (1.4-8.2); ANISOCYTOSIS 3+; LARGE PLATELETS FEW; PLATELET ESTIMATE DECREASED; POIKILOCYTOSIS 2+
[2020-02-13 07:00] LABS: BURR CELLS 1+; POLYCHROMASIA 1+; SCHISTOCYTES 1+; TEARDROPS 1+
[2020-02-13 07:55] VITALS: BP 142/57
--- NOTE | 2020-02-13 14:53 | NUR ---
PT IS PROGRESSING TOWARD GOAL OF DISHCARGE. PT HAD DIALYSIS TODAY. PLAN IS FOR PT TO RETURN TO [facility] INTERMEDIATE CARE ONCE MEDICALLY STALBE. CM TO FOLLOW INDICATED WITH DC PLANNING.
[2020-02-13 16:00] VITALS: BP 138/56
[2020-02-13 19:21] VITALS: BP 133/46
--- NOTE | 2020-02-13 20:11 | NUR ---
PT IS A&OX3, PT'S VS ARE STABLE, PT IS TOLERATED DIALYSIS TODAY, REMOVED 2000ML FLIUD, PT MAY DC TO HOME TOMORROW.
[2020-02-14] VITALS (7 sets, daily range): BP systolic 127–140; BP diastolic 50–57
[2020-02-14 01:07] LABS: HEP B SURFACE Ab(ANTI-HBS Non Reactive (()); HEPATITIS B SURFACE AG Negative (Negative)
--- NOTE | 2020-02-14 04:31 | NUR ---
ASSUMED PT CARE AT 1900. BSS. PT STATED SHE COULD NOT SLEEP DUE TO THE PAIN FROM HER EJ. PULLED EJ, IV TEAM WILL NEED TO PLACE A NEW LINE TODAY IF PT DOES NOT GO HOME. PT DEE REFUSES TURNS STATING SHE IS TOO COMFORTABLE TO BE MOVED. ANTICIPATING DISCHARGE TODAY.
[2020-02-14] MEDS ORDERED: CARVEDILOL12.5 MG PO (09:12)
[2020-02-14] MEDS ORDERED: PROTONIX 20 MG20 M1 PO (09:12)
--- NOTE | 2020-02-14 12:36 | NUR ---
ASSSUMED CARE AT 0700. PT SLEEPING, BUT NO COMPLAINTS AT THAT TIME. BLOOD SUGARS BEEN STABLE AND NO OTHER COMPLICATIONS AT THIS TIME. NO PIV IN PLACE, WILL MONITOR NEED. CORONA FISTUAL INTACT WITHOUT ISSUES. PLAN OF CARE TO DISCHARGE IN CARE OF FAMILY AT HOME. WILL CONTINUE TO MONITOR
--- NOTE | 2020-02-14 16:32 | NUR ---
PHYSICIAN HAD INDICATED THAT PT WAS MEDICALLY STABLE TO DC BACK TO [facility] THIS DAY. CM CALLED AND NOTIFIED DTR AND SHE STATED THAT THEY WANTED PT TO DC HOME INSTEAD. THEY INDICATED THEY NEEDED A HOSPITAL BED AND [facility]SEPH LIFT FOR HOME USE. PHYSICIAN NOTIFIED SHE PUT NOTE IN FOR EQUIPTMENT AND WROTE SCRIPTS CM ORDERED LIFT AND BED THROUGH [facility]. CM SET UP HOME HEALTH WITH [facility] THEY CAN ACCEPT. CM NOTIFIED PT'S DTR TANO ROMERO. PT'S ADDRESS IS [address] [place] [address] JIMMY. NURSE GOING OVER DC MEDS WITH DTR AND WILL CONVEY TO PHYSICIAN FOR HER TO CALL INTO PHARMACY. CM COMPLETED [facility] FORM AND FAXED IT ONCE EQUIPTMENT IS DELIVERED TRANSPORT CAN BE SCHEDULED BY NURSE. [facility] PHONE: FAX:
--- NOTE | 2020-02-15 07:10 | NUR ---
RECIEVED CARE OF THIS PATIENT AT 1900. PATIENT ALERT AND ORIENTED X4 WITH PERIODS OF CONFUSION AND FORGETFULLNESS. NO IV, DR AWARE AND SAYS IS OK. R AV SHUNT FOR DIALYSIS T,T,S. HAD 2 GOOD SIZE BM'S. SLEPT MOST OF NIGHT. ANURIC. PT AN RA. PT TO GO HAME ON MONDAY. DENIES PAIN.
[2020-02-15 08:36] VITALS: BP 141/62
--- NOTE | 2020-02-15 14:36 | NUR ---
ASSUMED CARE AT 0700. PT ALERT. NO COMPLAINTS. HAD DIALYSIS TODAY. NOW RESTING. WILL CONTINUE TO MONITOR
[2020-02-15 18:00] VITALS: BP 126/40
[2020-02-15 19:00] VITALS: BP 106/37
--- NOTE | 2020-02-16 01:22 | NUR ---
ASSUMED PT CARE AT APRROX 1900.PT ALERT WITH FORGETFULNESS.PT REPOSITIONED IN BED PER HER REQUEST.BG CLOSELY MONITORED WAS 95 AT HS.PT RESTING ON HER BED AT THIS TIME.FALL PRECAUTIONS IN PLACE,CALL LIGHT WITHIN REACH.
[2020-02-16 03:45] VITALS: BP 137/60
[2020-02-16 13:38] VITALS: BP 114/49
--- NOTE | 2020-02-16 16:20 | NUR ---
PT CARE ASSUMED AT 0700. A&Ox4. [id number]. PT IS HAVING DIARRHEA THAT IS LEAKING OUT OF HER. SHE HAS A POOR APPETITE. DIALYSIS CURTIS HERNANDEZ, SAT. FISTULA HAS A POS THRILL AND BRUITT. LOW BLOOD SUGARS SEE LAB RESULTS. POSSIBLE DC TOMORROW TO HOME. FALL PROTOCOL IN PLACE. CALL LIGHT IN REACH. WILL CONTINUE TO MONITOR.
[2020-02-16 16:31] VITALS: BP 126/54
[2020-02-16 19:15] VITALS: BP 128/57
[2020-02-16 19:30] VITALS: BP 128/57; BP 153/88
[2020-02-17 03:20] VITALS: BP 143/62
--- NOTE | 2020-02-17 03:20 | NUR ---
ASSUMED PT CARE AT APPROX 1900.PT DENIED PAIN SO FAR.PT REPOSITIONED IN BED PER HER REQUEST.PT HAD A SMALL SMEAR OF BM.PT HAS RASH ALL OVER HER BACK THAT IS ITCHY.R ARM DIALYSIS FISTULA INTACT,POSITIVE FOR THRILL AND BRUIT.PT RESTING ON HER BED AT THIS TIME.FALL PRECAUTIONS IN PLACE,CALL LIGHT WITHIN REACH.
--- NOTE | 2020-02-17 07:23 | HC ---
[facility] [place] [address] CONSULTATION Name: NELA MILLAN Room #: 435-P ADM IN M.R.#: [id number] Admission: 02/10/20 Attend Phys: Amaury Beatty MD Discharge: Date of : 42 Report #: [id number] THIS REPORT FOR: cc: Amaury Beatty MD,Amaury Howard,Bianca Pringle MD ~ CC: Bianca Beatty REASON FOR CONSULTATION: End-stage renal disease. REASON FOR PRESENTATION: Brought from her nursing facility because of altered mental status. HISTORY OF PRESENT ILLNESS: This is a 79-year-old who missed her dialysis in the last week x 2. She was found to be hypoglycemic and had dialysis in her nursing facility. However, when she presented yesterday, she was found to have elevated potassium at 7.4. She was emergently dialyzed. The patient is not able to provide me of the reason for which she missed her dialysis treatment. She is running into hypoglycemia and she is known to have panhypopituitarism and is maintained on steroids as an outpatient. She appears very lethargic when I talked with her this morning. Currently, the primary team is addressing her ongoing sugar issues. Her steroids dose was resumed. I was consulted to manage her end-stage renal disease. PAST MEDICAL HISTORY: 1. End-stage renal disease, maintained on hemodialysis every Monday, and Monday. 2. Hyperlipidemia. 3. Status post failed kidney transplant. 4. Status post pituitary tumor resection with panhypopituitarism. 4. Right total hip replacement. 5. Cataract surgery. 6. Diabetes mellitus. MEDICATIONS: 1. Aspirin. 2. Carvedilol. 3. Levothyroxine. 4. Pantoprazole. 5. PhosLo. 6. Nephro-Remy. 7. Hydrocortisone 20 in the morning and 10 in the evening. ALLERGIES: None. REVIEW OF SYSTEMS: The patient appears very lethargic this morning with a low [facility] [address] [place] [address] CONSULTATION Name: NELA MILLAN Room #: 435-P [facility] IN ..#: [id number] Admission: 02/10/20 Attend Phys: Amaury Beatty MD Discharge: Date of : 42 Report #: [id number] blood sugar at 51 and she is not able to provide me with review of system details. FAMILY HISTORY: Significant for hypertension. PHYSICAL EXAMINATION: GENERAL: She is disoriented, confused. VITAL SIGNS: Pulse rate is 81 and blood pressure is 160/84. HEAD AND NECK: No jugular venous distention. CHEST: Crackles bilaterally. CARDIOVASCULAR: No rub detected. ABDOMEN: Soft. EXTREMITIES: Lower extremities, no edema. LABORATORY DATA: Reviewed. Hemoglobin is 11.4. Sodium is 140, potassium is 5.5, BUN is 56, creatinine is 5.5. ASSESSMENT: 1. End-stage renal disease. 2. Hypoglycemia. 3. Noncompliance with dialysis regimen. 4. Hyperkalemia. PLAN: 1. We will arrange for the patient to have usual hemodialysis today. 2. Counseling about compliance. 3. Resume her thyroid and adrenal replacement. 4. Starts on D10 ___. 5. Continue to work on aggressive fluid removal and better volume control. 6. Continue to work on her potassium issues. <ELECTRONICALLY SIGNED> By: Bianca Howard MD 02/17/20 0723 [id number] Bianca Howard MD /nt
[2020-02-17 07:53] VITALS: BP 143/61
--- NOTE | 2020-02-17 15:21 | NUR ---
CM SPOKE WITH [facility] THIS DAY AND THEY ARE ABLE TO DELIVER HOSPITAL BED AND JO[facility] SE[facility] TO PT'S HOME TODAY Monday02/17/20 BETWEEN 3:30-5:00. CM CALLED AND SPOKE WITH PT'S DTR NORBERTO AND SHE INDICATED THAT HER SISTER NELA IS [facility] AWAITING DELIVERY. DISCHARGE ORDERS SENT TO [facility] AND TO [facility] FOR HER , , SAT DIALYSIS 11:15 CHAIR TIME. [facility] FORM COMPLETED. CM TO CALL AND ARRANGE [facility]RNASPORT FOR AFTER 5:00 THIS EVENING. NO OTHER CM INTERVENTION INDICATED.
--- NOTE | 2020-02-17 15:46 | NUR ---
PT DISCHARGING TODAY TO HOME WITH [facility] SPOKE WITH [facility] IN INTAKE HE RECEIVED ORDERS AND WILL NOTIFY PT TIME OF VISITS.. FAXED DC ORDERS/SUMMAARY TO [facility] RECEIVED CONFIRMATION PT TO GO TO THEIR REG. CHAIR TIME ON MONDAY.
[2020-02-17 16:32] VITALS: BP 143/61
--- NOTE | 2020-02-17 18:30 | NUR ---
PT ASSESSED THIS AM. PT DENIES PAINS. UNDERSTANDS SHE'S GOING TO STAY W/ HER DTR. ATE [facility]. SWALLOWING MEDS W/O DIFFICULTY. TURNED Q2HRS. ARRANGEMENTS MADE FOR EQUIPMENT FOR HOME CARE. PT DISCHARGE W/ [facility] TO DAUGHTERS HOME W/ ALL BELONGINGS.
== END 2020-02-17 18:52 | disposition home health service (06) | DRG 640 ==
LOC: ER 15:20 → ICU 17:47 → 4S 02-12 13:53
PROVIDERS: Emergency Medicine; Hospitalist; ADMIT Internal Medicine
PROC: 5A1D70Z Performance of Urinary Filtration, Intermittent, Less than 6 Hours Per Day (ICD-10-PCS; 2020-02-10)
PROC: 5A1D70Z Performance of Urinary Filtration, Intermittent, Less than 6 Hours Per Day (ICD-10-PCS; 2020-02-11)
PROC: 5A1D70Z Performance of Urinary Filtration, Intermittent, Less than 6 Hours Per Day (ICD-10-PCS; principal; 2020-02-13)
PROC: 5A1D70Z Performance of Urinary Filtration, Intermittent, Less than 6 Hours Per Day (ICD-10-PCS; 2020-02-15)
DX: E87.5 Hyperkalemia (principal); N18.6 End stage renal disease; E23.0 Hypopituitarism; Z94.0 Kidney transplant status; E27.40 Unspecified adrenocortical insufficiency; J91.8 Pleural effusion in other conditions classified elsewhere; T86.12 Kidney transplant failure; I12.0 Hypertensive chronic kidney disease with stage 5 chronic kidney disease or end stage renal disease; E11.649 Type 2 diabetes mellitus with hypoglycemia without coma; G89.29 Other chronic pain; I25.10 Atherosclerotic heart disease of native coronary artery without angina pectoris; Z96.641 Presence of right artificial hip joint; K21.9 Gastro-esophageal reflux disease without esophagitis; Z99.2 Dependence on renal dialysis; E11.22 Type 2 diabetes mellitus with diabetic chronic kidney disease; Y83.4 Other reconstructive surgery as the cause of abnormal reaction of the patient, or of later complication, without mention of misadventure at the time of the procedure; E78.5 Hyperlipidemia, unspecified; M54.9 Dorsalgia, unspecified; M19.90 Unspecified osteoarthritis, unspecified site; E03.9 Hypothyroidism, unspecified; Z86.018 Personal history of other benign neoplasm; Z79.899 Other long term (current) drug therapy; Z79.82 Long term (current) use of aspirin; I25.2 Old myocardial infarction; Z95.5 Presence of coronary angioplasty implant and graft; Z86.73 Personal history of transient ischemic attack (TIA), and cerebral infarction without residual deficits; Z88.8 Allergy status to other drugs, medicaments and biological substances; Z91.048 Other nonmedicinal substance allergy status; Z98.49 Cataract extraction status, unspecified eye; Z82.49 Family history of ischemic heart disease and other diseases of the circulatory system; Z91.14 Patient's other noncompliance with medication regimen; Y92.89 Other specified places as the place of occurrence of the external cause
CPT/HCPCS: 10078; 10195; 32100